=== PATIENT | male | born 1955 | race Caucasian/White ===

== ENCOUNTER 2021-07-06 08:29 | Outpatient (CLI) | payer MEDICARE, SELFPAY ==
--- NOTE | 2021-07-06 08:30 | ECG_ITS ---
Measurements Intervals [place] Rate: 69 P: 45 ME: 167 QRS: -14 QRSD: 97 T: 49 QT: 399 QTc: 428 Interpretive Statements SINUS RHYTHM BASELINE ARTIFACT- I, II, III, AVR, AVL, AVF NORMAL ECG Electronically Signed On 07-06-2021 9:03:15 INFANTRY UNIT LEADER by Trell Petty D.O.
[2021-07-06 09:43] LABS: Anion Gap 12 mmol/L (8-16); Blood Urea Nitrogen 20 mg/dL (9-20); Calcium 9.6 mg/dL (8.4-10.2); Carbon Dioxide 26 mmol/L (22-30); Chloride 100 mmol/L (98-107); Estimated Glomerular Filt Rate > 60; Glucose 129 mg/dL (65-110); Sodium 138 mmol/L (137-145)
== END 2021-07-06 08:30 | disposition home or self-care (01) ==
LOC: ANHSURGERY 08:32
PROVIDERS: Anesthesiology; PCP Internal Medicine; Visit Provider Orthopaedic Surgery
DX: Z01.818 Encounter for other preprocedural examination (principal); Z51.81 Encounter for therapeutic drug level monitoring; Z79.899 Other long term (current) drug therapy; I10 Essential (primary) hypertension
CPT/HCPCS: 36415; 80048; 93005

== ENCOUNTER 2021-07-10 01:08 | Day surgery (SDC) | payer MEDICARE, SELFPAY ==
[2021-07-04 14:56] VITALS: BMI 29.7
--- NOTE | 2021-07-04 14:57 | PC.NURSE ---
Addendum entered by Jin Basurto RN 07/04/21 15:09: No visitors allowed in hospital. Original Note: Report to the Outpatient Waiting Room, entrance under the green pavilion located off [facility], at time _0800__ on date 07-10-2021. OR Time: ___1000_. - You and your visitor will be asked a series of questions to screen for COVID 19 for your protection. - A mask is required within the hospital. - Only one visitor is allowed at this time. Patient visitors will be guided where to wait when not with patient. Preoperative COVID Testing Requirements: No COVID Test needed if: (proof is required; if not received patient will have Rapid Test prior to entry) - Patient has received COVID Vaccine at least 14 days prior to procedure date or - Patient has positive COVID test result within last 90 days of surgery date. COVID Test needed if above criteria is not met If not COVID vaccinated a COVID test must be conducted within 72 hours of surgery and patient is asked to isolate self from time of testing until procedure. You will go to the [facility] for your COVID testing. The [facility] [employer] site is located at the corner of [address] [facility]. You will only be called if COVID results are positive and your surgeon may reschedule your elective surgery date. Patients may have clear liquids (water, carbonated beverages, clear teas, apple juice) until 3 hours prior to surgery with a maximum of 20 ounces. - No food from midnight until time of surgery - Infants may have breast milk until 4 hours before surgery, infant formula 6 hours prior to surgery. - Children will be allowed to drink immediately following surgery. If applicable, please bring a bottle or sippy cup to assist with drinking. Juice, water, soda, and popsicles are readily available. For infants on formula, please bring formula the day of surgery. Pacifiers are allowed. Take the following medications with a SIP of water the morning of surgery: Medications to discontinue per physician Date to take last dose Please no make-up, nail kazakh, hairspray, perfume, deodorant, or body powder the day of surgery. No jewelry (including any body piercings) or valuables the day of surgery, leave them at home. Please take a shower or bath the night before, or the morning of, surgery with an antibacterial soap. Wear comfortable, loose fitting clothing. Children are encouraged to wear pajamas. - Jewelry must be removed prior to entering the operating room. Rings and piercings that are not removed may be cut off. - The hospital will not accept responsibility for valuables. - Please leave all valuables, including medications, at home the day of surgery. If you are going home after surgery, a licensed cement truck driver must drive you home. - NO public transportation without another adult. - We recommend that an adult stay with you for 24 hours following discharge. - We also recommend that you do not drive, make important decision, drink alcoholic beverages, or take any drugs that were not prescribed by your health care provider for at least 24 hours after your discharge time. For Pediatric surgeries, we recommend two adults accompany the child home (only one inside the building at this time). Follow any additional instructions given to you from your surgeon. Telephone instructions given to _Patient and asked if any additional questions and then verbalized understanding. Patient advised to call surgeon office or pre surgery nurse liaison [phone] if any additional questions.
--- NOTE | 2021-07-07 11:25 | PM.IMHP ---
H&P: HPI History of Present Illness Date/Time: 07/07/21 11:25 Chief Complaint: Right toe deformity, bilateral hand pain Narrative: 65-year-old gentleman right 2nd toe deformity and pain. Difficulty with shoe wear. Failed conservative treatment. Bilateral arthritis and small trigger finger deformity without relief. Review of Systems Constitutional: Constitutional: Denies fever(s) Eyes: Eyes: Denies blurry vision ENT: Reports Normal hearing present Cardiovascular: Cardiovascular: Denies chest pain and Denies dyspnea Respiratory: Respiratory: Denies dyspnea and Denies wheezing Gastrointestinal: Gastrointestinal: Denies abdominal pain Genitourinary: Genitourinary: Denies urinary urgency Musculoskeletal: Musculoskeletal: Reports as per HPI and Denies numbness Integumentary/Breasts: Skin/Breast: Denies changing lesions and Denies sores Neurologic: Reports Normal hearing present, Denies behavioral changes, Denies confusion, Denies numbness and Denies convulsions Psychiatric: Psychiatric: Denies behavioral changes, Denies confusion and Denies hallucinations Endocrine: Endocrine: Denies heat intolerance Hematologic/Lymphatic: Hematologic/Lymphatic: Denies easy bleeding Allergic/Immunologic: Allergic/Immunologic: Denies wheezing PMFSH Past Medical History Medical History Acquired trigger finger of left little finger Arthritis of hand, degenerative Hammertoe of second toe of right foot High cholesterol Hypertension Surgical History Surgical History History of carpal tunnel release 2011 History of foot surgery tarsal tunnel bilateral - 2018 History of knee replacement, total Bilateral 2003, 2012 Family History Family History Other Family history of malignant neoplasm Hypertension Social History Social History Smoking packs per day: 1 Smoking cigarettes per day: 20.0 Years smoked: 10 Smoking pack-years: 10.00 Smoking status: Former smoker Tobacco type: cigarettes Smoking end date: 07/04/01 Alcohol intake: current Substance use: never Spiritual care concerns: No Meds Home Medications and Allergies Home Medications Medication Instructions Recorded Confirmed Type hydrocodone-acetaminophen 1 tablet PO Q4H PRN 07/04/21 07/04/21 History losartan-hydrochlorothiazide 1 tablet PO DAILY 07/04/21 07/04/21 History Allergies Allergy/AdvReac Type Severity Reaction Status Date / Time No Known Allergies Allergy Verified 07/04/21 14:45 Exam Const: General: No confusion Orientation/consciousness: No confusion HENMT: Head: normal to inspection, normocephalic and atraumatic Eyes: Conjunctivae: conjunctivae normal Sclera: sclerae normal Neck: Neck: supple and nontender Chest: Chest palpation & inspection: normal inspection of the chest Resp: Effort & Inspection: normal respiratory effort and no audible wheezes Cardio: Rate: regular rate Rhythm: regular rhythm : General: Yes deferred Skin: General skin exam: no rashes or lesions noted Neuro: General: No confusion Extrem: General: capillary refill normal Right upper extremity: normal to inspection and Extremity exam: right hand tenderness of the dorsal hand and of the palm Left upper extremity: normal to inspection and hand tendon exam abnormal ( small finger) 5th digit Location: tenderness over the sheath ( A1 maribel with trigger deformity) and tenderness of the dorsal hand and of the palm Right lower extremity: normal to inspection, hip/thigh Details: normal to inspection, ankle Details: normal ROM; no tenderness and no swelling and foot Details: normal capillary refill, abnormal to inspection Details: joint swelling ( Second toe) and a deformity Location: of the 2nd digit and other ( Ham
[2021-07-10] VITALS (8 sets, daily range): BP systolic 151–179; BP diastolic 84–102; PULSE 62–72; RESP 10–16; TEMP 36.4–36.6; O2SAT 94–99
--- NOTE | ~2021-07-10 | XR_ITS ---
EXAMINATION: XR surgery orthopedic DATE: 07/10/2021 10:02 INDICATION: Right second hammertoe correction TECHNIQUE: 3 fluoroscopic images of the right forefoot were obtained during procedure performed by Dr Cami Abad. Radiologist was not present for the imaging or procedure. The amount of fluoroscopy time u sed during this procedure was 0.1 minutes. COMPARISON: 06/07/2021 FINDINGS: Arthrodesis at the second proximal interphalangeal joint with fixation device spanning the joint spac e placed over an axially directed percutaneous pin which extends from the tuft of the distal phalanx to the base of the proximal phalanx. Alignment of the second toe is now near-anatomic. No fractures i dentified. Minimal to mild osteoarthritis at the first metatarsophalangeal and a few of the interphal angeal joints. IMPRESSION: 1. Near-anatomic alignment post right second hammertoe correction with instrumented arthrodesis at th e second proximal interphalangeal joint. Reviewed, dictated and finalized at location A. ALS EXAMINER IMPRESSION: 1. Near-anatomic alignment post right second hammertoe correction with instrume nted arthrodesis at the second proximal interphalangeal joint.
--- NOTE | 2021-07-10 07:08 | WPDHPUPDATE1 ---
History and Physical Update Update Date/Time: 07/10/21 07:08 History and Physical has been reviewed, including an updated exam of the patient. There are NO changes in the patient's condition. Risks, benefits, and alternatives have been discussed and questions answered. Patient agrees to proceed with procedure.
[2021-07-10] MEDS: ACETAMINOPHEN 500 MG TABLET 1000 MG PO (08:31)
--- NOTE | 2021-07-10 08:36 | WPDANESEPPF ---
Anes - Initial Pre Proc Eval Procedure: Operation Date: 07/10/21 10:00 Proposed Procedures p Right Second Hammertoe Correction, Cortisone Injection Bilateral Hands and Left Small Finger - Rayo Abad MD Date/Time: 07/10/21 08:36 Surgeon: Rayo Abad MD Pre Op Diagnosis: Right Second Hammer Toe, Lt Sm Trigger Finger Patient Data Age: 65 Gender: M Height: 1.96 m Weight: 113.6 kg Allergies Allergy/AdvReac Type Severity Reaction Status Date / Time No Known Allergies Allergy Verified 07/10/21 08:21 Home Medications Medication Instructions Recorded Confirmed Type hydrocodone-acetaminophen 1 tablet PO Q4H PRN 07/04/21 07/10/21 History losartan-hydrochlorothiazide 1 tablet PO DAILY 07/04/21 07/10/21 History ascorbic acid (vitamin C) [Vitamin 500 mg PO DAILY 07/10/21 07/10/21 History C] multivitamin 1 cap PO DAILY 07/10/21 07/10/21 History zinc 50 mg PO DAILY 07/10/21 07/10/21 History Patient hx anesthesia problems: none Family hx anesthesia problems: none Results Review: All pre-operative results and documents have been reviewed as part of the pre-operative evaluation. [facility] Past Medical History Medical History Acquired trigger finger of left little finger Arthritis of hand, degenerative Hammertoe of second toe of right foot High cholesterol Hypertension Surgical History Surgical History History of carpal tunnel release 2011 History of foot surgery tarsal tunnel bilateral - 2018 History of knee replacement, total Bilateral 2003, 2012 Family History Family History Other Family history of malignant neoplasm Hypertension Social History Social History Smoking packs per day: 1 Smoking cigarettes per day: 20.0 Years smoked: 10 Smoking pack-years: 10.00 Smoking status: Former smoker Tobacco type: cigarettes Smoking end date: 07/04/01 Alcohol intake: current Substance use: never Living arrangements: with family Spiritual care concerns: No Anes - Eval Final PreProcedure Day of Procedure 07/10/21 08:36 Patient weight: obese Heart: regular rate and rhythm Lungs: clear to auscultation Airway: Mallampati scale class II Neurological: alert and oriented Last oral intake: >/= 8 hours ASA classification: III Emergent: no Anesthetic plan: proceed Anesthesia type and monitoring: general LMA and standard monitoring Results Review: All pre-operative results and documents have been reviewed as part of the pre-operative evaluation. Informed Consent: The patient's anesthetic plan and its attendant risks and benefits were discussed with the patient/family/POA. Questions were solicited and answers provided to the satisfaction of the patient/family/POA.
[2021-07-10] MEDS: LACTATED RINGERS 1,000 ML 30 ML IV CONT (08:45)
[2021-07-10] MEDS: KETOROLAC 15 MG/ML VIAL (*BKC) IV PUSH (08:46)
[2021-07-10] MEDS: ceFAZolin 2 GM/D5W 50 ML 2 GM/50 ML BAG IVPB (09:02)
[2021-07-10] MEDS: ceFAZolin SODIUM 1 GM VIAL IV PUSH (09:20)
[2021-07-10] MEDS: methylPREDNISolone ACETATE 80 MG/ML VIAL 160 MG IM (09:36)
--- NOTE | 2021-07-10 10:11 | W.PM.PROC2 ---
Procedure Note - Detailed Date of Procedure 07/10/21 Pre-op Diagnosis Right Second Hammer Toe, Lt Sm Trigger Finger, bilateral hand arthritis Post-op Diagnosis same Procedure Performed Right 2nd hammertoe correction with proximal interphalangeal arthrodesis, left small trigger finger cortisone injection, bilateral hand cortisone injection Surgeon Rayo Abad MD [employer] Tube [employer] 1st occupational therapist assistant Anesthesia general Indications 65-year-old gentleman with bilateral lower extremity peripheral neuropathy and a right 2nd hammertoe deformity, left small trigger finger deformity and bilateral hand arthritis. Patient is in a pre ulcerative state with the 2nd toe due to problems with shoe wear. He has failed conservative treatment with hammertoe strapping. He presents for operative treatment. In addition he has trigger deformity of the left small finger and bilateral hand pain and stiffness. He is indicated for cortisone injection. Description of Procedure Patient identified in the preoperative holding. Informed consent given. Operative extremity marked. Patient received intravenous antibiotics. Patient brought to the operating room where underwent general anesthetic by anesthesia team. Positioned supine on operating room table. Time-out performed confirming the patient, site of the surgery and the plan. Right foot and bilateral hands prepped and draped usual sterile surgical fashion using ChloraPrep skin solution. The injections were performed 1st. 40 mg of Depo-Medrol and 1 cc of Marcaine 0.5% was injected into the left small finger flexor tendon sheath at the A1 maribel site. Sterile bandage placed. 25 gauge needle used. Fresh 25 gauge needle then used to inject 40 mg of Depo-Medrol into the dorsum of the left hand, sterile bandage placed. 25 gauge needle used to inject 40 mg of Depo-Medrol into the dorsum of the right hand. Sterile dressing placed. We then turned our attention to the right foot. The 2nd toe deformity was noted to be fixed. Dorsal longitudinal incision made with a 15 blade knife over the proximal interphalangeal joint. Hemostasis controlled electrocautery. Dorsal capsulotomy performed. Collateral ligaments released. The distal end of the proximal phalanx removed with a bone cutter and the proximal end of the middle phalanx removed with a rongeur. Bone edges smoothed. The reamers for the hammertoe implant were then used to ream the proximal and middle phalanx. The implant was then placed into the middle phalanx and the joint was reduced and impacted. Image intensification confirmed placement. 0.0 4 5 in K-wire placed secondarily and left outside the toe. Wound thoroughly irrigated and the capsule repaired with 3-0 Monocryl interrupted suture. Skin repaired 4-0 nylon interrupted suture. Sterile dressing applied. The patient was then woken from anesthesia, extubated and taken to the recovery room in stable condition. All sponge, needle, instrument counts were correct at the end of the case. Implants Arthrex 16 mm hammertoe implant Estimated Blood Loss 5 Tourniquet Time 1 Drains No Packing No Pathology none sent Complications None Condition stable Disposition PACU
== END 2021-07-10 11:55 | disposition home or self-care (01) ==
PROVIDERS: PCP Internal Medicine; Visit Provider Orthopaedic Surgery
PROC: (CPT 28285; principal; 2021-07-10 10:00)
DX: M20.41 Other hammer toe(s) (acquired), right foot (principal); M65.352 Trigger finger, left little finger; M79.18 Myalgia, other site; M19.042 Primary osteoarthritis, left hand; M19.041 Primary osteoarthritis, right hand; M79.642 Pain in left hand; M79.641 Pain in right hand; I10 Essential (primary) hypertension; E78.00 Pure hypercholesterolemia, unspecified; Z87.891 Personal history of nicotine dependence; E66.9 Obesity, unspecified; Z68.30 Body mass index [BMI] 30.0-30.9, adult
CPT/HCPCS: 28285; 20553; 36415; 80048; 93005; A9270; J0690; J1040; J1100; J1885; J2250; J2405; J2704; J7120

== ENCOUNTER 2022-05-01 10:30 | Outpatient (CLI) | payer MEDICARE, SELFPAY ==
--- NOTE | ~2022-05-01 | XR_ITS ---
EXAMINATION: XR lg joint inject/asp w image DATE: 05/01/2022 11:16 INDICATION: Right hip arthritis. TECHNIQUE: A time-out was performed to verify the patient's name, date of , and procedure to b e performed. The procedure including the risks, benefits, and alternatives was discussed with the pat ient. Risks discussed included bleeding and infection. The patient understood the risks and agreed to proceed. The skin overlying the right hip joint was prepped and draped in usual sterile fashion. A nesthetic was administered with 1% lidocaine subcutaneously. A 22 G needle was advanced under fluoro scopic guidance into the joint. Subsequently, injectate consisting of 2 mL 0.5% bupivacaine and 1 mL 80 mg/mL Depo-Medrol was instilled. The needle was removed and the entry site was cleaned and dress ed. There were no immediate complications. Fluoroscopy exposure time was 0.0 minutes. The total numb er of images was 1. FINDINGS: Real-time fluoroscopy demonstrates the needle in the right hip joint. Patient's pain prior to procedure:3/10. Patient's pain following the procedure: 0/10. IMPRESSION: 1. Fluoroscopy guided right hip joint injection of local anesthetic and steroid with decrease in the patient's presenting pain. Reviewed, dictated and finalized at location A.
== END 2022-05-01 10:31 | disposition home or self-care (01) ==
LOC: ANHIMG 10:34
PROVIDERS: PCP Family Medicine; Visit Provider Nurse Practitioner Family
DX: M16.11 Unilateral primary osteoarthritis, right hip (principal)
CPT/HCPCS: 20610; 77002; J1040

== ENCOUNTER 2022-06-13 13:45 | Outpatient (RCR) | payer MEDICARE, SELFPAY ==
--- NOTE | 2022-05-02 12:01 | PTOPEVAL1 ---
Assessment and note entered by Katelin Plascencia, PT Evaluation Information Assessment Status Evaluation Diagnosis Right hip pain Onset 6 weeks Subjective Information Always had soreness. 6 weeks ago started to get more intense and wouldn't go away. Last 2 weeks was constant and at times up to a 10/10. Was taking hydrocodone but felt like it was bothering his stomach. Got a steroid shot 05/01/2022 and feels more comfortable . Reported Pain Level Pain Score 1: Self Report Assessment PT Clinical Summary Pt presents w/ c/o R hip pain that began 6 weeks ago. Last 2 weeks pain was very high, pt was able to receive a steroid shot in the joint yesterday and reports he is much more comfortable now. Evaluation shows decreased Active and Passive ROM of the right hip as compared to left with capsular and joint end-feels as well as decreased strength in the gluteal and abdominal muscles, and poor pelvic alignment with right inominate downslip. Pt is a highly active individual who works our recreationally 4x weekly and also golfs throughout the year. He will greatly benefit from physical therapy to improve right hip range of motion, strength, and pelvic alignment to decrease impingement and return pt to pain-free high level function. Plan of Care Interventions Electrical Stimulation,Gait Training,Manual Therapy,Neuro Re-education,Patient/Caregiver Ed,Therapeutic Activities,Therapeutic Exercise PT Services Indicated Yes Treatment Frequency and 2x weekly x 4 weeks Duration These treatments will address the objective and functional deficits as defined above. The patient will be advanced safely and appropriately in order for the patient to progress towards his/her prior level of function. Additional exercises will be introduced and as well as a comprehensive home exercise program upon discharge, if needed, ?to ensure carryover of functional gains achieved in the clinic. This treatment plan has been reviewed and agreement upon by the patient.
--- NOTE | 2022-05-25 11:51 | BUPTOPEVAL1 ---
Assessment and note entered by Katelin Plascencia, PT Assessment Status Progress Report Diagnosis Right hip pain Onset 6 weeks Subjective Information Reports at times has no pain. Is better able to go golf and walk around but at times still has to stop and rest because of the Achy or stitch feeling in right hip and groin. Would like to be able to lift his right leg onto left for dressing ability. Feels 75% improved overall. Reported Pain Level Pain Score 0-5/10 Additional Pain Score Comments Improved ability to walk on concrete floors up to an hour. Also able to play 9 holes of golf. Assessment PT Clinical Summary Pt burke's mildly increased ROM in hip extension, moderately improved ROM in rotation at 90/90. Burke 's increased strength and appears to have more function with less pain as well as greater ease of movement within available range. However has yet to reach his goals related to pain and function. He voiced today wishing to get back to fitness activities at local Rec. center. Discussed with patient continuation of therapy at 1-2x weekly with focus on home program and return to higher level fitness activities without irritating hip. Thus patient will benefit from cont therapy to continue improvements, educate and empower patient to continue independently upon completion of skilled services. Plan of Care Interventions Electrical Stimulation,Gait Training,Hot Pack/Cold Pack,Manual Therapy,Neuro Re-education,Patient/ Caregiver Educati,Therapeutic Activities, Therapeutic Exercise,Ultrasound PT Services Indicated Yes Treatment Frequency and 1-2x weekly x 4 weeks Duration These treatments will address the objective and functional deficits as defined above. The patient will be advanced safely and appropriately in order for the patient to progress towards his/her prior level of function. Additional exercises will be introduced and as well as a comprehensive home exercise program upon discharge, if needed, ?to ensure carryover of functional gains achieved in the clinic. This treatment plan has been reviewed and agreement upon by the patient.
--- NOTE | 2022-06-15 16:40 | BUPTOPDC ---
Assessment and note entered by Katelin Plascencia, PT Evaluation Information Assessment Status Discharge Diagnosis Right hip pain Onset 6 weeks Subjective Information Pt reports feeling 80-85% improved overall. States most difficulty with with using his elliptical, walking a lot, and with stairs. Reports has been able to return to [facility] without issue, is able to use recumbent bike without issue. Reported Pain Level Pain Score 0: Self Report Assessment PT Clinical Summary Pt reports feeling 80-85% improved overall, with worst pain reducing from 10/10 to 2/10. He has been able to return to his local Recreation center to work out, and only has increased pain with walking a lot . He demo's independence with home exercises, and would like to continue independently. He was educated on return to therapy if necessary but otherwise is doing well and thus is being discharged from therapy services at this time.
== END 2022-06-18 10:55 | disposition home or self-care (01) ==
LOC: ANHHIPT 13:45
PROVIDERS: PCP Family Medicine; Visit Provider Nurse Practitioner Family
DX: M16.11 Unilateral primary osteoarthritis, right hip (principal); M25.551 Pain in right hip
CPT/HCPCS: 97110; 97140; 97161

== ENCOUNTER → 2022-09-17 07:00 | Outpatient (CLI) | payer MEDICARE, SELFPAY ==
--- NOTE | ~2022-09-17 | MR_ITS ---
MRI of the right hip Clinical history: Pain Technique: Coronal T1-weighted, T2-weighted, and proton-density fat-sat images, and axial T1-weighted and proton-density fat-sat images were acquired through the pelvis. Coronal T2-weighted images and c oronal, axial, and sagittal proton-density fat-sat images were acquired through the right hip. Findings: There is no fracture, avascular necrosis, or transient osteoporosis of either hip. There is severe osteoarthritic change at the superior/superolateral aspect of the right hip joint, with joint space narrowing and extensive high-grade chondromalacia. There is subchondral cystic change and christen ow edema in the roof of the right acetabulum. There is additional marrow edema at the anterior aspect of the right femoral head. Minimal right hip joint effusion present. No definite right acetabular la bral tear identified. Visualized osseous alignment about the pelvis and right hip is unremarkable. No muscle atrophy or fuad ma identified. Visualized tendons are intact. No fluid collection or bursitis identified. IMPRESSION: Advanced osteoarthritic at the superior aspect of the right hip joint. Additional marrow edema at the anterior aspect of the right humeral head. This is possibly related to underlying degenerative change, however this somewhat away from articular portion of the femoral hea d. Bone contusion or other reactive marrow edema are also considerations. Reviewed, dictated and finalized at [facility]. IMPRESSION: Advanced osteoarthritic at the superior aspect of the right hip joint. Additional marrow edema at the anterior aspect of the right humeral head. This is possibly related to underlying degenerative change, however this somewhat aw ay from articular portion of the femoral head. Bone contusion or other reactive marrow edema are also considerations.
== END ==
PROVIDERS: PCP Family Medicine; Visit Provider Physician Assistant Medical
DX: M16.11 Unilateral primary osteoarthritis, right hip (principal)
CPT/HCPCS: 73721

== ENCOUNTER 2022-11-23 12:42 | Outpatient (CLI) | payer MEDICARE, SELFPAY ==
--- NOTE | ~2022-11-23 | XR_ITS ---
EXAMINATION: XR lg joint inject/asp w image DATE: 11/23/2022 13:52 INDICATION: Right hip osteoarthritis TECHNIQUE: A time-out was performed to verify the patient's name, date of , and procedure to b e performed. The procedure including the risks, benefits, and alternatives was discussed with the pat ient. Risks discussed included bleeding and infection. The patient understood the risks and agreed to proceed. The skin overlying the right hip joint was prepped and draped in usual sterile fashion. A nesthetic was administered with 1% lidocaine subcutaneously. A 22 G needle was advanced under fluoro scopic guidance into the joint. Injection of 1 mL of Omnipaque 240 confirmed intra-articular positio n of the needle. Subsequently, injectate consisting of 3 mL of a 2:1 mixture of 0.5% Marcaine:80 mg/ mL Depo-Medrol for a total dose of 80 mg Depo-Medrol was instilled. Washout of contrast was seen conf irming intra-articular administration. The needle was removed and the entry site was cleaned and dres sed. There were no immediate complications. Fluoroscopy exposure time was 0.1 minutes. The total num mike of images was 1. FINDINGS: Real-time fluoroscopy demonstrates the needle in the right hip joint. Patient's pain prior to procedure:5/10. Patient's pain following the procedure: 0/10. IMPRESSION: 1. Successful right hip joint injection of local anesthetic and steroid with decrease in the patient' s presenting pain. Reviewed, dictated and finalized at location A. IMPRESSION: 1. Successful right hip joint injection of local anesthetic and steroid with de crease in the patient's presenting pain.
== END 2022-11-23 12:43 | disposition home or self-care (01) ==
PROVIDERS: PCP Family Medicine; Visit Provider Orthopaedic Surgery
DX: M16.11 Unilateral primary osteoarthritis, right hip (principal)
CPT/HCPCS: 20610; 77002; J1040; Q9966

== ENCOUNTER 2023-03-21 07:50 | Outpatient (CLI) | payer MEDICARE, SELFPAY ==
--- NOTE | 2023-03-21 09:05 | ECG_ITS ---
Measurements Intervals [place] Rate: 47 P: 31 WV: 148 QRS: -13 QRSD: 112 T: 7 QT: 436 QTc: 386 Interpretive Statements SINUS BRADYCARDIA INTRAVENTRICULAR CONDUCTION DELAY DELAYED PRECORDIAL R/S TRANSITION BASELINE ARTIFACT- I, II, III, AVR, AVL, AVF ABNORMAL ECG COMPARED TO ECG 07/06/2021 08:48:43 SINUS BRADYCARDIA NOW PRESENT INTRAVENTRICULAR CONDUCTION DELAY NOW PRESENT Electronically Signed On 03-21-2023 9:35:01 CDT by Trell Petty D.O.
[2023-03-21 09:51] LABS: Appearance Urine Clear (Clear); Bilirubin Urine Negative (Negative); Blood Urine Negative (Negative); Color Urine Yellow (Yellow); Glucose Urine UA Negative (Negative); Ketones Urine Negative (Negative); Leukocyte Esterase Ur Negative LEU/UL (Negative); Nitrate Urine Negative (Negative); Protein Urine Negative (Negative); Specific Grav Ur 1.025 (1.001-1.035); Urobilinogen Urine 0.2 mg/dL (<2.0); pH Urine 6.5 (5.0-9.0)
[2023-03-21 10:02] LABS: Urine Cotinine NEGATIVE
[2023-03-21 10:03] LABS: INR 0.9
[2023-03-21 10:04] LABS: Partial Thromboplastin Time 32.2 SECONDS (22.3-36.8)
[2023-03-21 10:06] LABS: Add Urine Microscopic? NO
== END 2023-03-21 07:51 | disposition home or self-care (01) ==
PROVIDERS: PCP Family Medicine; Visit Provider Orthopaedic Surgery
DX: M16.11 Unilateral primary osteoarthritis, right hip (principal); Z01.818 Encounter for other preprocedural examination; I45.9 Conduction disorder, unspecified
CPT/HCPCS: 80307; 81003; 85610; 85730; 86850; 86900; 86901; 87081; 93005

== ENCOUNTER 2023-04-02 00:33 | Day surgery (SDC) | payer MEDICARE, SELFPAY ==
--- NOTE | 2023-03-21 07:54 | PC.NURSE ---
PRE-OP INSTRUCTIONS, PLEASE READ CAREFULLY Report to the Outpatient Waiting Room, entrance under the green pavilion located off [facility], at time _0600_ on date _04/02/23_. Planned Procedure Time: _0730_. PACK A SMALL OVERNIGHT BAG AND LEAVE IN THE CAR ALONG WITH YOUR WALKER Time changes happen often and if your time is changed the preop area will call you the afternoon before. - You and your visitor will be asked to self-screen and do not enter if you have any COVID symptoms. - A mask is optional within the hospital at this time. -VISITING HOURS 8AM-8PM Patients may have clear liquids (water, carbonated beverages, clear teas, apple juice) until 3 hours prior to surgery (0430 AM) with a maximum of 20 ounces. - No food from midnight until time of surgery Take the following medications with a SIP of water the morning of surgery: _ALPRAZOLAM, PAIN PILL & INHALER IF NEEDED_ DO NOT STOP ANY OF YOUR OTHER PRESCRIPTION MEDICATIONS PRIOR TO SURGERY ?EXCEPT THE FOLLOWING Medications to discontinue _IBUPROFEN PER DR. COKER'S INSTRUCTIONS - CALL FOR INSTRUCTIONS__ Medications to discontinue per ANESTHESIA - _MULTIVITAMIN, SUPPLEMENTS 3 DAYS PRIOR TO SURGERY, Date to take last dose 03/29/23_ Please no make-up, nail british, hairspray, perfume, deodorant, or body powder the day of surgery. No jewelry (including any body piercings) or valuables the day of surgery, leave them at home. Please take a shower or bath the night before, or the morning of, surgery with an antibacterial soap. Wear comfortable, loose fitting clothing. - Jewelry must be removed prior to entering the operating room. Rings and piercings that are not removed may be cut off. - The hospital will not accept responsibility for valuables. - Please leave all valuables, including medications, at home the day of surgery. If you are going home after surgery, a licensed screw driver operator must drive you home. - NO public transportation without another adult if you receive anesthesia. - We recommend that an adult stay with you for 24 hours following discharge. - We also recommend that you do not drive, make important decision, drink alcoholic beverages, or take any drugs that were not prescribed by your health care provider for at least 24 hours after your discharge time. Follow any additional instructions given to you from your surgeon. If you or anyone in your household have experienced Covid symptoms in the past week, please notify your surgeon or the nurse liaison at the phone number below for possible testing. Instructions given to _PATIENT_and asked if any additional questions and then verbalized understanding. Patient advised to call surgeon office or pre surgery nurse liaison [phone] if any additional questions.
[2023-03-21 08:20] VITALS: BP 132/74; PULSE 50; RESP 20; TEMP 36.8; O2SAT 98; BMI 30.1
[2023-04-02] VITALS (13 sets, daily range): BP systolic 101–164; BP diastolic 65–88; PULSE 58–112; RESP 14–18; TEMP 36.2–36.8; O2SAT 95–100
--- NOTE | ~2023-04-02 | XR_ITS ---
Right Hip Technique: Portable AP view Clinical History: Status post hip arthroplasty Findings: Patient is status post right hip arthroplasty. Orthopedic hardware alignment appears anatom ic. No hardware complication is evident. Subcutaneous emphysema and swelling is likely postoperative in nature. No acute osseous fracture is seen. Impression: Status post total right hip arthroplasty, without evidence of hardware complication. Reviewed, dictated and finalized at location . Impression: Status post total right hip arthroplasty, without evidence of hardware complica tion.
--- NOTE | 2023-04-02 06:41 | WPDANESEPPF ---
Anes - Initial Pre Proc Eval Procedure: Operation Date: 04/02/23 07:30 Proposed Procedures p Right Total Hip Arthroplasty, Bilateral Hand Cortisone Injection - Nirmal Mayorga MD Date/Time: 04/02/23 06:41 Surgeon: Nirmal Mayorga MD Pre Op Diagnosis: right hip djd, Vidal Hand Arthrititis Patient Data Age: 67 Gender: M Height: 1.96 m Weight: 115.3 kg Last Vital Signs Temp 36.8 C 03/21/23 08:20 Pulse 50 L 03/21/23 08:20 Resp 20 03/21/23 08:20 BP 132/74 03/21/23 08:20 Pulse Ox 98 03/21/23 08:20 O2 Del Method Room Air 03/21/23 08:20 Allergies Allergy/AdvReac Type Severity Reaction Status Date / Time No Known Allergies Allergy Verified 03/21/23 08:12 Home Medications Medication Instructions Recorded Confirmed Type ascorbic acid (vitamin C) 500 mg 500 mg PO DAILY 07/10/21 03/21/23 History tablet (Vitamin C) multivitamin 1 cap PO DAILY 07/10/21 03/21/23 History zinc 50 mg capsule 50 mg PO DAILY 07/10/21 03/21/23 History trazodone 50 mg tablet See Rx Instructions .Route 07/06/22 03/21/23 Rx .COMPLEX #90 tabs albuterol sulfate 90 mcg/actuation 1 - 2 inh inhalation Q4-6H PRN 10/02/22 03/21/23 Rx aerosol inhaler shortness of breath or wheezing #8.5 grams zolpidem 10 mg tablet 10 mg PO QHS PRN insomnia #30 tabs 10/11/22 03/21/23 Rx amlodipine 5 mg-benazepril 20 mg 1 cap PO DAILY #90 caps 11/01/22 03/21/23 Rx capsule hydrocodone 5 mg-acetaminophen 325 1 tablet PO Q4H PRN Pain #30 tabs 12/25/22 03/21/23 Rx mg tablet alprazolam 0.5 mg tablet 0.5 mg PO BID PRN anxiety #180 tabs 03/11/23 03/21/23 Rx ibuprofen 800 mg tablet See Rx Instructions .Route 03/15/23 03/21/23 Rx .COMPLEX #90 tabs chlorhexidine gluconate 4 % 1 applic topical ONCE #237 mL 03/21/23 03/21/23 Rx topical liquid (Hibiclens) lutein 40 mg capsule 40 mg PO DAILY 03/21/23 03/21/23 History omega 8-ewz-eut-fish oil 1,200 mg 1 cap PO DAILY 03/21/23 03/21/23 History (144 mg-216 mg) capsule (Fish Oil) metoprolol succinate 50 mg See Rx Instructions .Route 04/01/23 Rx tablet,extended release 24 hr .COMPLEX #90 tabs Patient hx anesthesia problems: none Family hx anesthesia problems: none Results Review: All pre-operative results and documents have been reviewed as part of the pre-operative evaluation. [facility] Past Medical History Medical History Acquired trigger finger of left little finger Acute sinusitis Anxiety Arthritis of hand, degenerative Bilateral shoulder region arthritis Encounter for postoperative care Hammertoe of second toe of right foot High cholesterol Hypertension Idiopathic peripheral neuropathy Insomnia Mallet toe of left foot Mallet toe of right foot Osteoarthritis of right hip Pain in left foot Pain in right foot (12/20/17) Right hip pain Tarsal tunnel syndrome of left side Tarsal tunnel syndrome of right side Trigger middle finger of left hand Surgical History Surgical History H/O colonoscopy 2020 Dr. Hare repeat 3 years History of carpal tunnel release 2011 History of foot surgery tarsal tunnel bilateral - 2018 History of hammer toe correction History of knee replacement, total Bilateral 2003, 2012 Family History Family History Father Heart disease Mother No problems noted. Other Family history of malignant neoplasm Hypertension Social History Social History Smoking packs per day: 1 Smoking cigarettes per day: 20.0 Years smoked: 10 Smoking pack-years: 10.00 Smoking status: Former smoker Tobacco type: cigarettes Second hand tobacco smoke exposure: No Smoking end date: 07/01/07 Additional smoking assessment comments: PT DENIES ALL FORMS OF TOBACCO USE Alcohol intake: current Alcohol use details: 12/WEEK DU
[2023-04-02] MEDS: LACTATED RINGERS 1,000 ML 30 ML IV CONT ×2 (06:45→10:27)
[2023-04-02] MEDS: ACETAMINOPHEN 500 MG TABLET 1000 MG PO (06:45)
--- NOTE | 2023-04-02 07:16 | WPDHPUPDATE1 ---
History and Physical Update Update Date/Time: 04/02/23 07:16 History and Physical has been reviewed, including an updated exam of the patient. There are NO changes in the patient's condition. Risks, benefits, and alternatives have been discussed and questions answered. Patient agrees to proceed with procedure.
[2023-04-02] MEDS: ceFAZolin 2 GM/D5W 50 ML 2 GM/50 ML BAG IVPB ×3 (07:35→23:39)
[2023-04-02] MEDS: methylPREDNISolone ACETATE 40 MG/ML VIAL IM ×2 (09:17→09:20)
[2023-04-02] MEDS: BUPivacaine HCL 0.5% 10 ML AMP 8 ML INFILTRATE (09:22)
[2023-04-02] MEDS: TRANEXAMIC ACID 1,000 MG/10 ML AMPUL 1000 MG IV PUSH (09:43)
--- NOTE | 2023-04-02 10:26 | W.PM.PROC2 ---
Procedure Note - Detailed Date of Procedure 04/02/23 Pre-op Diagnosis right hip djd, Vidal Hand Arthrititis Post-op Diagnosis Same Procedure Performed R BRAD, INJECTION BILATERAL HANDS Surgeon Nirmal Mayorga MD Anesthesia General Description of Procedure THE PATIENT WAS TAKEN TO THE OPERATING ROOM IN STABLE CONDITION AND WAS PLACED IN THE LATERAL DECUBITUS AND THE RIGHT LOWER EXTREMITY WAS PREPPED AND DRAPED IN THE STERILE FASHION. INCISION WAS MADE IN THE POSTERIOR LATERAL SIDE OF THE HIP, DOWN TO THE FASCIA LAYER. THE FASCIA WAS INCISED. THE HIP WAS EXPOSED. THE SHORT EXTERNAL ROTATORS WERE EXPOSED. THE SCIATIC NERVE WAS IDENTIFIED. INCISION WAS MADE THROUGH THE SHORT EXTERNAL ROTATORS AND THE CAPSULE OF THE HIP JOINT. THE HIP WAS DISLOCATED. AN OSTEOTOMY WAS MADE TO THE FEMORAL NECK ABOUT 1 CM PROXIMAL TO THE LESSER TROCHANTER. THE ACETABULUM WAS EXPOSED. THERE WAS SEVERE DJD SEEN. BEGINNING WITH A 44 REAMER THE ACETABULUM WAS REAMED TO 57 MM. A 57 MM TRIAL WAS PLACED IN 35 DEG OF ABDUCTION AND ANTEVERSION WAS IN ALIGNMENT WITH THE TRANS ACETABULAR LIGAMENT. THE FIT WAS EXCELLENT. THE TRIAL WAS REMOVED. A 58 MM BIOMET G7 COMPONENT WAS THEN TAPPED IN TO PLACE IN 35 DEG OF ABDUCTION AND ANTEVERSION IN ALIGNMENT WITH THE TRANSVERSE ACETABULAR LIGAMENT. THE FIT WAS EXCELLENT. THE ACETABULAR LINER WAS PLACED AND CHECKED FOR STABILITY. NEXT THE FEMUR WAS PREPARED WITH INITIAL CANAL FINDER THEN SEQUENTIAL BROACHING WITH A TAPERLOC HIP SYSTEM, UNTIL A 12 BROACH FIT WELL IN 15 OF ANTEVERSION. A +3 HIGH OFFSET NECK WITH 36 MM HEAD TRIAL WAS PLACED. THE SHUCK TEST WAS EXCELLENT AND THE STABILITY IN FLEXION AND ROTATION WAS EXCELLENT. LEG LENGTHS WERE GROSSLY EQUAL. TRIALS WERE REMOVED. A BIOMET TAPERLOC 12 STEM WAS PLACED WITH A HIGH OFFSET NECK. THE FIT WAS EXCELLENT IN 15 DEG OF ANTEVERSION. A +3 CERAMIC 36 MM FEMORAL HEAD WAS PLACED. THE HIP WAS TRIALED AND THE STABILITY WAS EXCELLENT WERE THE LEG LENGTHS AND THE SHUCK TEST. THE WOUND WAS IRRIGATED WITH STERILE BETADINE AND WATER FOR 3 MIN. THEN WASHED AGAIN. THE SCIATIC NERVE WAS IDENTIFIED AGAIN. THE CAPSULE AND THE EXTERNAL ROTATORS WERE APPROXIMATED WITH NUMBER 2 VICRYL. THE FASCIA WITH No 2 QUIL AND THE SUB CUTANEOUS LAYER WITH 2-0 ABSORBABLE SUTURE AND A RUNNING 3-0 SUBCUTICULAR STITCH FOR THE SKIN. DERMABOND WAS PLACED AND STERILE DRESSING WAS APPLIED. NEXT BOTH HANDS WERE IDENTIFIED. DEPO MEDROL AND SENSORCAINE WERE INJECTED INTO THE DORSUM OF BOTH HANDS ADJACENT TO THE MP CAPSULE OF ALL DIGITS. PATIENT WAS PLACED BACK ON TO THE SUPINE POSITION AND WAS EXTUBATED Estimated Blood Loss -1,400 Complications No immediate complications Condition Stable Disposition PACU
--- NOTE | 2023-04-02 10:45 | SUR.PHASEI ---
1045- Verified with Dr. Mayorga drawing H&H in PACU. Per Dr. Mayorga place orders for 04/03/2023 H&H in AM at 0500. Orders obtained and placed for H&H.
[2023-04-02] MEDS: fentaNYL CITRATE INJ (*CRX) 100 MCG/2 ML VIAL 25 MCG IV PUSH ×8 (10:51→11:20)
--- NOTE | 2023-04-02 11:45 | PC.NURSE ---
This patient, Conor Washington, was admitted to 3 Med Surg Room 306-02. Patient/family oriented to hospital policies and general routines including ID bracelet, bed and alarms, visiting hours, pain management, procedures, bathroom and other care routines, personal items, smoking policy, room service/diet, and visiting hours. Information on how to activate the Rapid Response Team has been discussed. Patient/Family are encouraged to report perceived risks to care and to ask questions if they do not understand what they are told or what they should do.
[2023-04-02] MEDS: HYDROcodone/acetaminophen (*CRX) 7.5-325 MG TABLET 1 TAB PO ×2 (13:06→18:11)
[2023-04-02] MEDS: PROPARACAINE HCL 0.5% 15 ML OPHTH SOLN 1 DROP EACH EYE (13:27)
[2023-04-02] MEDS: DICLOFENAC SODIUM 0.1% OPHTH SOLN 2.5 ML BOTTLE 1 DROP EACH EYE ×2 (14:04→21:38)
[2023-04-02] MEDS: ONDANSETRON INJ 4 MG/2 ML VIAL IV PUSH ×2 (14:52→23:44)
[2023-04-02] MEDS: SODIUM CHLORIDE 0.9% IV 1,000 ML 125 ML IV CONT (16:40)
[2023-04-02] MEDS: KETOROLAC 15 MG/ML VIAL (*BKC) IV PUSH ×2 (17:59→23:35)
[2023-04-02] MEDS: ASPIRIN 325 MG ENTERIC TABLET PO (21:38)
[2023-04-02] MEDS: FAMOTIDINE 20 MG TABLET PO (21:38)
[2023-04-03 00:31] VITALS: BP 173/82; PULSE 94; RESP 18; TEMP 36.8; O2SAT 97
[2023-04-03 04:30] VITALS: BP 148/77; PULSE 102; RESP 16; TEMP 36.2; O2SAT 97
[2023-04-03 06:08] LABS: Basophils Percent Auto 0.1 % (0.2-1.2); Eosinophils Percent Auto 0.1 % (0-4.4); Hematocrit 34.4 % (42.0-52.0); Hemoglobin 11.4 g/dL (14.0-18.0); Immature Granulocyte Absolute 0.07 K/mm3 (0.00-0.031); Immature Granulocyte Percent A 0.5 % (0-0.5); Lymphocytes Absolute Auto 0.82 K/mm3 (0.9-3.2); Lymphocytes Percent Auto 6.2 % (18.3-44.2); Mean Corpuscular HGB Conc 33.1 g/dl (32-36); Mean Corpuscular Hemoglobin 33.6 pg (26-34); Mean Corpuscular Volume 101.5 fl (80-100); Mean Platelet Volume 10.6 fl (7.4-10.4); Monocytes Absolute Auto 1.2 K/mm3 (0.1-0.6); Monocytes Percent Auto 8.7 % (2.6-8.5); Neutrophils Absolute Auto 11.2 K/mm3 (1.3-6.7); Neutrophils Percent Auto 84.4 % (45.5-73.1); Platelet Count Result 175 k/mm3 (150-375); Red Blood Count 3.39 M/mm3 (4.6-6.20); Red Cell Distribution Width 12.2 % (11.5-14.5); White Blood Count 13.3 K/mm3 (4.5-10.0)
[2023-04-03] MEDS: DICLOFENAC SODIUM 0.1% OPHTH SOLN 2.5 ML BOTTLE 1 DROP EACH EYE (06:21)
[2023-04-03] MEDS: ceFAZolin 2 GM/D5W 50 ML 2 GM/50 ML BAG IVPB (06:21)
[2023-04-03] MEDS: KETOROLAC 15 MG/ML VIAL (*BKC) IV PUSH (06:22)
[2023-04-03 06:37] LABS: Anion Gap 9 mmol/L (8-16); Blood Urea Nitrogen 21 mg/dL (9-20); Calcium 8.5 mg/dL (8.4-10.2); Carbon Dioxide 27 mmol/L (22-30); Chloride 98 mmol/L (98-107); Estimated CRCL calculation 128 ml/min; Estimated Glomerular Filt Rate > 60; Glucose 144 mg/dL (65-110); Sodium 134 mmol/L (137-145)
[2023-04-03 08:45] VITALS: BP 178/77; PULSE 116; RESP 18; O2SAT 100
[2023-04-03 09:11] VITALS: O2SAT 97
[2023-04-03 09:16] VITALS: BP 121/90; PULSE 119; RESP 18; TEMP 36; O2SAT 99
[2023-04-03] MEDS: SENNA/DOCUSATE SODIUM TABLET 2 TAB PO (09:29)
[2023-04-03] MEDS: amLODIPine BESYLATE 5 MG TABLET BY MOUTH (09:29)
[2023-04-03] MEDS: FAMOTIDINE 20 MG TABLET PO (09:29)
[2023-04-03] MEDS: lisinopriL 20 MG TABLET PO (09:29)
[2023-04-03] MEDS: ASCORBIC ACID 500 MG TABLET PO (09:30)
[2023-04-03] MEDS: polyethylene glycoL 3350 17 GM POWD.PACK PO (09:30)
--- NOTE | 2023-04-03 09:36 | WPDANESPN ---
Anes - Prog Note Post-Op Date/Time: 04/03/23 09:36 Cardiovascular status: normal Respiratory status: normal Airway patency: baseline Mental status: baseline Post-Op hydration status: normal Vital Signs: Last Vital Signs Temp 97.1 F L 04/03/23 04:30 Pulse 116 H 04/03/23 08:45 Resp 18 04/03/23 08:45 BP 178/77 H 04/03/23 08:45 Pulse Ox 97 04/03/23 09:11 O2 Del Method Room Air 04/03/23 09:11 O2 Flow Rate 8 04/02/23 10:55 Pain Score (VAS): 2 I/O: Intake & Output 04/02/23 04/03/23 04/03/23 23:59 07:59 15:59 Intake Total 720 50 Output Total 625 Balance 720 -575 Laboratory Tests 04/03/23 05:26 04/03/23 05:23 04/03/23 04/03/23 05:23 05:26 WBC 13.3 H RBC 3.39 L Hgb 11.4 L Hct 34.4 L MCV 101.5 H MCH 33.6 MCHC 33.1 RDW 12.2 Plt Count 175 MPV 10.6 H Immature Gran % (Auto) 0.5 Neut % (Auto) 84.4 H Lymph % (Auto) 6.2 L Tucker % (Auto) 8.7 H Eos % (Auto) 0.1 Baso % (Auto) 0.1 L Lymph # (Auto) 0.82 L Tucker # (Auto) 1.2 H Eos # (Auto) 0.0 Baso # (Auto) 0.0 Abs Immat Gran (auto) 0.07 H Absolute Neuts (auto) 11.2 H Absolute Nucleated RBC 0.0 Nucleated RBC % 0.0 Sodium 134 L Potassium 4.0 Chloride 98 Carbon Dioxide 27 Anion Gap 9 BUN 21 H Creatinine 0.60 L Estim Creat Clear Calc 128 Estimated GFR > 60 Glucose 144 H Calcium 8.5 Post-procedural complaints: nausea and vomiting Patient Feedback: Patient satisfied with anesthetic care.
--- NOTE | 2023-04-03 10:47 | PM.PNORT ---
Progress Note: A&P Assessment and Plan (1) Osteoarthritis of right hip: Code(s): M16.11 - Unilateral primary osteoarthritis, right hip Status: Acute Assessment and Plan: POD 1 DOING WELL, HE IS HAVING SOME NAUSEA AND VOMITING X 2 YESTERDAY. NO VOMITING THIS AM. WE WILL SEE HOW HE IS DOING THIS AFTERNOON AND PLAN FOR DC IF HE IS FEELING BETTER. Subjective Subjective Date/Time Seen: 04/03/23 10:47 Interval history: POD 1 DOING WELL. NO CALF PAIN Exam Extrem: Other: VSS AFEBRILE DRESSING DRY, NV INTACT, NEG HOMANS SIGN, CALF SOFT NON TENDER Objective Data Vital Signs Vital Signs: Vital Signs - 24 hr 04/02/23 10:55 04/02/23 11:10 04/02/23 11:25 Temperature 36.2 C L 36.2 C L Pulse Rate 58 L 62 61 Respiratory Rate 16 16 14 Blood Pressure 118/88 139/84 130/82 Pulse Oximetry 100 100 100 Oxygen Delivery Simple Face Mask Room Air Room Air Oxygen Flow Rate 8 04/02/23 11:29 04/02/23 11:45 04/02/23 11:45 Temperature 36.4 C Pulse Rate 62 65 Respiratory Rate 16 14 Blood Pressure 152/79 H 164/77 H Pulse Oximetry 96 100 Oxygen Delivery Room Air Room Air Oxygen Flow Rate 04/02/23 12:00 04/02/23 12:30 04/02/23 13:30 Temperature 36.4 C 36.5 C 36.5 C Pulse Rate 62 69 73 Respiratory Rate 14 14 14 Blood Pressure 144/73 H 136/76 142/75 H Pulse Oximetry 99 98 100 Oxygen Delivery Oxygen Flow Rate 04/02/23 15:42 04/02/23 17:30 04/02/23 21:16 Temperature 36.2 C L 36.8 C Pulse Rate 112 H 85 Respiratory Rate 16 16 Blood Pressure 101/65 152/76 H Pulse Oximetry 95 96 Oxygen Delivery Room Air Oxygen Flow Rate 04/03/23 00:31 04/03/23 04:30 04/03/23 08:45 Temperature 36.8 C 36.2 C L Pulse Rate 94 102 H 116 H Respiratory Rate 18 16 18 Blood Pressure 173/82 H 148/77 H 178/77 H Pulse Oximetry 97 97 100 Oxygen Delivery Oxygen Flow Rate 04/03/23 09:11 04/03/23 09:29 04/03/23 09:16 Temperature 36.0 C L Pulse Rate 119 H Respiratory Rate 18 Blood Pressure 121/90 Pulse Oximetry 97 99 Oxygen Delivery Room Air Room Air Oxygen Flow Rate Intake/Output Intake/Output: Intake & Output 03/31/23 04/01/23 04/02/23 04/03/23 23:59 23:59 23:59 23:59 Intake Total 1092 50 Output Total 625 Balance 1092 -575 Meds/Results Medications: Active Medications Generic Name Dose Route Start Last Admin Trade Name Freq PRN Reason Stop Dose Admin Acetaminophen 650 mg 04/02/23 11:31 Acetaminophen 325 Mg Tablet PO Q6H PRN Mild Pain (1-3) or Fever Hydrocodone Bitart/Acetaminophen 1 tab 04/02/23 11:31 04/02/23 18:11 Hydrocodone/Acetaminophen (*Crx) 7.5-325 Mg Tablet PO 1 tab Q3H PRN Administration Pain Rated 4-6 Hydrocodone Bitart/Acetaminophen 2 tab 04/02/23 11:31 Hydrocodone/Acetaminophen (*Crx) 7.5-325 Mg Tablet PO Q6H PRN Pain Rated 7-10 Alprazolam 0.5 mg 04/02/23 11:31 Alprazolam (*Crx) 0.5 Mg Tablet PO BID PRN anxiety Amlodipine Besylate 5 mg 04/03/23 09:00 04/03/23 09:29 Amlodipine Besylate 5 Mg Tablet BY MOUTH 5 mg DAILY ROGE Administration Artificial Tears 1 drop 04/02/23 13:09 Artificial Tears Ophth Soln 15 Ml Bottle EACH EYE Q2H PRN Dry Eye(s) Ascorbic Acid 500 mg 04/03/23 09:00 04/03/23 09:30 Ascorbic Acid 500 Mg Tablet PO 500 mg DAILY ROGE Administration Aspirin 325 mg 04/02/23 21:00 04/03/23 09:35 Aspirin 325 Mg Enteric Tablet PO Not Given Q12HR ROGE Diazepam 5 mg 04/02/23 11:31 Diazepam (*Crx) 5 Mg Tablet PO Q6H PRN Anxiety/Muscle Spasm Diclofenac Sodium 1 drop 04/02/23 14:00 04/03/23 06:21 Diclofenac Sodium 0.1% Ophth Soln 2.5 Ml Bottle EACH EYE 04/06/23 13:59 1 drop Q8HR ROGE Administration Famotidine 20 mg 04/02/23 21:00 04/03/23 09:29 Famotidine 20 Mg Tablet PO 20 mg Q12HR ROGE Administration Hydroxyzine HCl 50 mg 04/02/23 11:31 Hydroxyzine Hcl 25 Mg Tablet
--- NOTE | 2023-04-03 13:12 | PC.NURSE ---
Addendum entered by Criss Corral RN 04/03/23 17:19: Pt was discharged home. Pt was wheeled out to car by organic section technical lead per pt and family request to have a male help pt in the vehicle. Pt IV was removed, and surgical dressing was changed. Pt tolerated well. Extra dressing was sent with pt. Discharge instructions were explained to pt and spouse. Both verbalized understanding. Pt was monitored for any changes in status while here. Original Note: Pt is A&O4 male who has participated and contributed in plan of care. Pt is post-op day 1. Pt has been having nausea. Pt denies any pain and has refused offers of pain medication and nausea medication. Pt has been up with therapy today. Pt hopeful to discharge later today. Pt blood pressure elevated with therapy earlier. Pt bp returned to normal limits at rest. Will continue to monitor pt.
[2023-04-03 13:16] VITALS: BP 139/71; PULSE 84; RESP 14; TEMP 36.6; O2SAT 92
[2023-04-03] MEDS: CALCIUM CARBONATE (TUMS) 500 MG (200 MG ELEMENTAL) PO (13:45)
--- NOTE | 2023-04-03 14:37 | PM.DS ---
DS: Admitting Diagnosis Discharge Date 02-01-23 Admitting Diagnosis right hip djd DS: Discharge Diagnosis Discharge Diagnosis (1) Osteoarthritis of right hip: Code(s): M16.11 - Unilateral primary osteoarthritis, right hip Status: Acute DS: Summary Hospital Course Reason for hospitalization: RIGHT BRAD Hospital Course: PATIENT WAS ADMITTED S/P TOTAL HIP ARTHROPLASTY FOR POSTOPERATIVE MEDICAL MANAGEMENT, PAIN CONTROL AND MOBILIZATION WITH PHYSICAL AND OCCUPATIONAL THERAPY. THE PATIENT PROGRESSED WELL WITH PT/OT. LABS AND VITALS REMAINED STABLE AND PAIN WELL CONTROLLED. THE PATIENT HAS BEEN CLEARED TO BE DISCHARGED HOME. FOLLOW UP APPOINTMENT SCHEDULED. DISCHARGE INSTRUCTIONS DISCUSSED AT LENGTH WITH THE PATIENT. MEDICATIONS REVIEWED. Status at Discharge Cognitive/behavioral status at discharge: STABLE Time Spent with Patient Time attestation: Total time spent providing and/or coordinating discharge services: DS: Data Data Completed and Pending Labs on day of discharge: Labs from last 24 hours 04/03/23 04/03/23 05:26 05:23 WBC 13.3 H RBC 3.39 L Hgb 11.4 L Hct 34.4 L MCV 101.5 H MCH 33.6 MCHC 33.1 RDW 12.2 Plt Count 175 MPV 10.6 H Immature Gran % (Auto) 0.5 Neut % (Auto) 84.4 H Lymph % (Auto) 6.2 L Letcher % (Auto) 8.7 H Eos % (Auto) 0.1 Baso % (Auto) 0.1 L Lymph # (Auto) 0.82 L Letcher # (Auto) 1.2 H Eos # (Auto) 0.0 Baso # (Auto) 0.0 Abs Immat Gran (auto) 0.07 H Absolute Neuts (auto) 11.2 H Absolute Nucleated RBC 0.0 Nucleated RBC % 0.0 Sodium 134 L Potassium 4.0 Chloride 98 Carbon Dioxide 27 Anion Gap 9 BUN 21 H Creatinine 0.60 L Estim Creat Clear Calc 128 Estimated GFR > 60 Glucose 144 H Calcium 8.5 Discharge Plan Discharge Patient Disposition: Home Health Service Discharge Instructions: Per Care Coordination: [facility] will contact you prior to their first visit. [facility] will follow for RN and PT/OT eval and treat. [facility] can be reached at [phone]. Postoperative Hip Fracture Instructions [Dr. Rayo Abad] [Dr. Nirmal Mayorga] [phone] Dressing to be changed daily with an island dressing beginning on post op day #2. May stop dressing changes at post op day #14. No sutures/yanira will need to be removed. Can allow Dermabond to fall off naturally. Weight bearing: Weight bearing as tolerated. You may shower with your dressing but do not submerge in a bath tub. Do not drive or operate machinery until you are released by your surgeon. Do not walk without a walker for any reason until you are released by your surgeon. DVT prophylaxis take Aspirin 325mg PO for x28 days post op. Continue to apply ice to the hip intermittently for additional pain relief. Protect your skin with a towel or pillow case. Continue to follow strict hip fracture precautions. Please contact our office with any questions/concerns regarding your hip at [phone]. Follow up appointment instructions indicated below. Patient Instructions: Antibiotic Form Stand Alone Forms: General Discharge Information Follow-up/Referrals: Nirmal Mayorga MD [Physician] - 04/22/23 9:15 am Discharge Medications: Continued hydrocodone-acetaminophen 5-325 mg tablet 1 tablet PO Q4H PRN (Reason: Pain) Qty: 30 0RF ibuprofen 800 mg tablet See Rx Instructions .ROUTE .COMPLEX Qty: 90 1RF Dose Instruction: TAKE 1 TABLET BY MOUTH 3 TIMES A DAY NEEDED FOR PAIN Rx Instructions: TAKE 1 TABLET BY MOUTH 3 TIMES A DAY NEEDED FOR PAIN ascorbic acid (vitamin C) [Vitamin C] 500 mg Tablet 500 mg PO DAILY multivitamin Capsule 1 cap PO DAILY zinc 50 mg Capsule 50 mg PO DAILY omega 6-cob-vev-fish oil [Fish Oil] 1,200 (144-216) mg Capsule 1 cap PO DAILY lutein 40 mg Capsule 40 mg PO DAILY Rx Instructions: administer with meals trazodone 50
== END 2023-04-03 16:15 | disposition home health service (06) ==
LOC: ANHSURGERY 05:57 → ANH3MEDSUR 11:34
PROVIDERS: PCP Family Medicine; Visit Provider Orthopaedic Surgery
PROC: (CPT 27130; principal; 2023-04-02 07:30)
DX: M16.11 Unilateral primary osteoarthritis, right hip (principal); M19.042 Primary osteoarthritis, left hand; M19.041 Primary osteoarthritis, right hand; I10 Essential (primary) hypertension; E78.00 Pure hypercholesterolemia, unspecified; G62.9 Polyneuropathy, unspecified; Z87.891 Personal history of nicotine dependence; E66.9 Obesity, unspecified; Z68.29 Body mass index [BMI] 29.0-29.9, adult; Z79.51 Long term (current) use of inhaled steroids; Z79.891 Long term (current) use of opiate analgesic
CPT/HCPCS: 27130; 20600; 36415; 73501; 80048; 80307; 81003; 85025; 85610; 85730; 86850; 86900; 86901; 87081; 93005; 97110; 97116; 97161; 97165; 97530; 97535; A9270; C1713; C1776; J0171; J0690; J1030; J1100; J1170; J1885; J2250; J2270; J2371; J2405; J2704; J2795; J3010; J7030; J7120

== ENCOUNTER 2024-02-17 08:00 | Outpatient (RCR) | payer MEDICARE, SELFPAY ==
--- NOTE | 2024-01-16 17:02 | OPREHPOC ---
Outpatient Therapy Plan of Care This is a Multidisciplinary Plan of Care that may contain components documented by all disciplines (PT, OT, and ST.) PT Problem 1 PT Problem #1 Knowledge Deficit PT Goal 1 Goal Pt will be independent in HEP Pt will verbalize understanding of diagnosis and prognosis Target Visit 6 PT Problem 2 PT Problem #2 Impaired Range of Motion PT Goal 1 Goal Pt will demo ROM within 75% of normal values in all tested planes Target Visit 6 PT Problem 3 PT Problem #3 Impaired Endurance PT Goal 1 Goal Pt will demo ability to maintain appropriate scapular position throughout entire session without cueing. Target Visit 6 PT Problem 4 PT Problem #4 Impaired Strength PT Goal 1 Goal Pt will demo strength of 4/5 in all tested planes Target Visit 6
--- NOTE | 2024-01-16 17:02 | PTOPEVAL1 ---
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 Scheduled for 04/01/24 left total shoulder replacement and six months later the right shoulder. Can't currently do work outs wiht UEs, doing the elliptical with UEs increases discomfort. Currently taking hydrocodone as needed but hasn't had to take it since the last steroid shot. Modifies his activities to prevent increased discomfort Reported Pain Level Pain Score 0: Self Report Additional Pain Score [facility] Assessment PT Clinical Summary Pt presents for program to assist in preparing him for a total shoulder replacement in March of this year. He demo's poor scapualr placement, decreased active ROM, decreased strength and significant pain and severe crepitus with resisted abduction today. His post-surgical packet was reviewed and his initial home program was provided to focus on increasing ROM and strength. Pt will benefit from cont therapy once weekly to continue progressing pt strength and ROM to prepare for maximal outcome of surgical intervention later this year. Plan of Care Interventions Electrical Stimulation,Hot Pack/Cold Pack,Manual Therapy,Neuro Re-education,Patient/Caregiver Educati,Therapeutic Activities,Therapeutic Exercise,Self-Care/Home Management,Ultrasound PT Services Indicated Yes Treatment Frequency and 1x weekly x 6 weeks Duration These treatments will address the objective and functional deficits as defined above. The patient will be advanced safely and appropriately in order for the patient to progress towards his/her prior level of function. Additional exercises will be introduced and as well as a comprehensive home exercise program upon discharge, if needed, ?to ensure carryover of functional gains achieved in the clinic. This treatment plan has been reviewed and agreement upon by the patient.
--- NOTE | 2024-02-17 17:10 | PTOPDC ---
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 Is not allowed steroids three months prior surgery Is not currently requiring modification to activities, cont to golf. Has been able to control pain wiht OTC. Noted significant grinding with wiping off [employer] yesterday Reported Pain Level Pain Score 2: Self Report Assessment PT Clinical Summary Pt has completed his 6 visits of therapy to prepare for surgery in the coming months. He demo' s good understanding of maintaining and continued gains of ROM and strength with his HEP. He demo's independence in his HEP and also reports lower incidents of pain since initiation of therapy. Thus patient is being discharged from services due to completion. Plan of Care PT Services Indicated No
== END 2024-02-18 10:30 | disposition home or self-care (01) ==
LOC: ANHHIPT 08:00
PROVIDERS: PCP Physician Assistant Medical
DX: M19.012 Primary osteoarthritis, left shoulder (principal); M25.512 Pain in left shoulder; G89.29 Other chronic pain
CPT/HCPCS: 97014; 97110; 97140; 97162; 97530; 97750; G0283

== ENCOUNTER 2024-06-19 08:30 | Outpatient (RCR) | payer MEDICARE, SELFPAY ==
--- NOTE | 2024-04-24 17:16 | PTOPEVAL1 ---
Assessment and note entered by Marley Billingsley, PT Evaluation Information Assessment Status Evaluation ICD-10 Condition Codes (PT) M25.512,Weakness R53.1 Subjective Information Pt reports underwent surgery last 04/01/2024. Wore a sling first 2 weeks, compliant with post-op HEPs provided by Ortho. States he feels greatest pain with moving L shoulder out to the side. Stopped wearing the sling and cont. 1-2 miles daily walks if he feels ache to shoulder he puts it inside pocket and pain is relieved. Taking Hydrocodone prn, Tylenol daily at night. Pt's goal is to regain full mobility and strength to be able to play golf without discomfort. Reported Pain Level Pain Score 2: Self Report Assessment PT Clinical Summary Pt is a 68 yo male who presents to therapy s/p L anatomic total shoulder arthroplasty. He scored 47 % on QUICK DASH indicating moderate disability, Demos significant reduction in ROM, strength and c /o pain with mild swelling at this time which impact his ability to perform ADLs and IADLs requiring increased assistance from his . He will benefit from skilled PT to manage pain, address deficits and improve functional strength and mobility to return to PLOF without pain and discomfort. Plan of Care Interventions Electrical Stimulation,Hot Pack/Cold Pack, Intermittent Compression,Manual Therapy,Neuro Re- education,Patient/Caregiver Education,Therapeutic Activities,Therapeutic Exercise Other Interventions IASTM, Taping PT Services Indicated Yes Treatment Frequency and 2x/wk x 20 visits Duration These treatments will address the objective and functional deficits as defined above. The patient will be advanced safely and appropriately in order for the patient to progress towards his/her prior level of function. Additional exercises will be introduced and as well as a comprehensive home exercise program upon discharge, if needed, ?to ensure carryover of functional gains achieved in the clinic. This treatment plan has been reviewed and agreement upon by the patient.
--- NOTE | 2024-06-19 09:59 | PTOPDC ---
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 However, he notice that at night, he feels like a gentle throbbing on the incision site , haven't taken medication for pain in the last 3 days. Reported Pain Level Pain Score 0: Self Report Assessment PT Clinical Summary Pt received a total of 9 treatment sessions post Total Shoulder Replacement surgery, presented today for reassessment. Demos good progress and gains in mobility to WNL, strength of 4/5 to tested planes, showed 12% in Quick DASH score indicating minimal disability at this time. He has met all established goals and reports compliant with HEPs, planning to start going back to the [facility] after the Holidays and is confident about performing the exercises following the return to function protocol provided by Surgeon. Skilled PT discontinued at this time. Plan of Care PT Services Indicated No
== END 2024-06-22 13:07 | disposition home or self-care (01) ==
LOC: ANHHIPT 08:30
PROVIDERS: PCP Physician Assistant Medical
DX: M19.012 Primary osteoarthritis, left shoulder (principal); M25.512 Pain in left shoulder; R53.1 Weakness
CPT/HCPCS: 97014; 97035; 97110; 97140; 97161; 97750; G0283

== ENCOUNTER 2024-09-05 08:27 | Emergency (ER) | payer MEDICARE, SELFPAY ==
--- OUTSIDE RECORDS SUMMARY | 2024-09-05 08:29 | XMS_ITS | Encounter Summary ---
Author Organization [facility] Address [address] [place] [address] Care Team Providers Care Bomb Squad Officer Name Role Phone Unavailable Primary Care Provider Unavailabl e Encounter Details Date Type Department Care Team (Late st Contact Info) Description 03/03/2024 Lab Requisition [facility] - DermPath Lab [address] [place] [id number] Deedee Wetzel PA [address] [place] [address] Dermatitis, unspecified Social History Tobacco Use Types Packs/Day Years Used Date Smoking Tobacco: Never Assessed Sex and Gender Information Value Date Recorded Sex Assigned at Not on file Gender Identity Not on file Sexual Orientation Not on file documented as of this encounter Plan of Treatment Not on file documented as of this encounter Procedures Procedure Name Priority Date/Time Associated Diagnosis Comments DERMATOPATHOLOGY Routine 03/03/2024 12:0 0 AM CDT Dermatitis, unspecified documented in this encounter Results * DERMATOPATHOLOGY (03/03/2024 12:00 AM CDT) Case Report Dermatopathology Report Case: [id number] Authorizing Provider: Deedee Wetzel PA Collected: 03/03/2024 12:00 AM Ordering Location: [facility] - Received: 03/04/2024 12:15 PM DermPath Lab Pathologist: Kenyatta Pillai MD Specimen: Skin, left lower abdomen 3:51 PM CDT DERMATOPATHOLOGY LABORATORY Final Diagnosis Specimen A. SKIN, left lower abdomen: SPONGIOTIC DERMATITIS WITH EOSINOPHILS (L30.8) (see microscopic description and comment) 3:51 PM CDT DERMATOPATHOLOGY LABORATORY Clinical History Dermatitis unspecified vs atopic dermatitis vs allergic contact dermatitis 3:51 PM CDT DERMATOPATHOLOGY LABORATORY Gross Description Specimen A: Received is one formalin filled container labeled with the patient's name and designated left lower abdomen. The specimen consists of a punch biopsy measuring 4x4x3 mm. Jar 0. 3:51 PM CDT DERMATOPATHOLOGY LABORATORY Microscopic Description Specimen A. SKIN, left lower abdomen: There is focal parakeratosis and spongiosis. In the dermis there is a mainly superficial perivascular lymphohistiocytic inflammatory infiltrate with numerous eosinophils. Additional deeper sections were obtained and reviewed. COMMENT: The histological differential diagnosis includes a contact dermatitis, an eczematous drug eruption, and less likely the urticarial phase of bullous pemphigoid. 3:51 PM CDT DERMATOPATHOLOGY LABORATORY Disclaimer An external and internal positive and negative controls are appropriate for the histochemical, immunohistochemical and immunofluorescence stain(s) in this case (if any), except where stated explicitly. The performance characteristics of the stain(s) cited in this report were developed and its performance characteristic determined by the Dermatopathology Laboratory at [facility], directed by Dr. Margie Morin. These tests need not be, and therefore are not, approved by the [place] Food and Drug Administration. The tests are used for clinical purposes. Billing Codes Specimen Charges Stain Charges 50146 1 3:51 PM CDT DERMATOPATHOLOGY LABORATORY Embedded Images 3:51 PM CDT DERMATOPATHOLOGY LABORATORY Pathology/Cytolog y TISSUE SPECIMEN FROM SKIN / Unknown 03/03/2024 03/04/2024 12:15 PM CDT [facility] - PATHOLOGY/CYT OLOGY ORDERABLES DERMATOPATHOLOGY LABORATORY [facility] - Department of Dermatology [address] [place] [address], [facility] [phone] documented in this encounter Visit Diagnoses Diagnosis Dermatitis, unspecified documented in this encounter
--- OUTSIDE RECORDS SUMMARY | 2024-09-05 08:29 | XMS_ITS | Clinical Summary ---
Author Organization [facility] Address [address] [place] [address] Care Team Providers Care Dj Instructor Name Role Phone Unavailable Primary Care Provider Unavailabl e Source Comments [facility],non-owned Affiliates and Associated Physician Practices is amultiple site organization consisting of ambulatory clinics and hospital sitesin [place], [place], [place] and [place]. This disclosure is being madepursuant to the Care Everywhere program and may not contain all information available regarding this patient. Last updated 18.[facility] Social History Tobacco Use Types Packs/Day Years Used Date Smoking Tobacco: Never Assessed Sex and Gender Information Value Date Recorded Sex Assigned at Not on file Gender Identity Not on file Sexual Orientation Not on file Plan of Treatment Health Maintenance Due Date Last Done Comments COLOGUARD (AGES 45-75) - COL ON CA SCREENING 1955 COLON MONITORING 1955 COLONOSCOPY - COLON CA SCREENING 1955 CT COLONOGRAPHY - COLON CA SCREENING 1955 Colorectal Cancer Screening 1955 FIT - COLON CA SCREENING 1955 FLEX SIG - COLON CA SCREENING 1955 LIPID TESTING 1955 HEPATITIS C SCREENING 12/19/1973 DTAP/TDAP/TD VACCINES (1 - Tdap) 12/23/1974 PNEUMOCOCCAL VACCINE 50+ (1 of 1 - PCV) 12/23/2005 ZOSTER VACCINE (1 of 2) 12/23/2005 COVID-19 VACCINE ( - 2023-2 5 season) 2024 INFLUENZA VACCINE (#1) 2024 DEPRESSION SCREENING 07/01/2024 MEDICARE AWV CALENDAR YEAR 2024 Respiratory Syncytial Virus (RSV) Vaccine Pt: or over 60 yrs (1 - 1-dose 75+ series) 12/23/2030 HEPATITIS B VACCINE Aged Out No longe r eligible based on patient's age to complete this topic HIB VACCINE Aged Out No longer eligi ble based on patient's age to complete this topic HPV VACCINE Aged Out No longer eligi ble based on patient's age to complete this topic MENINGOCOCCAL (Group B) VACCINE Aged Out No longer eligible based on patient's age to complete this topic MENINGOCOCCAL VACCINE Aged Out No rhys jyotsna eligible based on patient's age to complete this topic
--- OUTSIDE RECORDS SUMMARY | 2024-09-05 08:29 | XMS_ITS | Referral Summary ---
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, unspecified whether manager long term care insulin use; Primary osteoarthritis of right shoulder; Preoperative testing 09/02/2024 6:51 AM MUSHROOM SPAWN MAKER - 09/02/2024 11:59 PM MUSHROOM SPAWN MAKER Hospital Encounter [address] [address] Discharge Disposition: Discharge to home or self care 09/02/2024 8:23 AM MUSHROOM SPAWN MAKER - 09/02/2024 11:59 PM MUSHROOM SPAWN MAKER Hospital Encounter [facility] Radiology at [address] [address] Arthritis of right shoulder region Discharge Disposition: Discharge to home or self care 09/02/2024 9:00 AM MUSHROOM SPAWN MAKER Pre-Admission Testing [facility] CAM Pre Anesthesia Testing [address] [place] [phone] Pre-op evaluation (Primary Dx); 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, unspecified whether manager long term care insulin use 08/06/2024 Telephone [facility] Orthopaedic Surgery [address] [place] [address] [address]th [place] [address] [place] [address] Petey Casanova MD 07/22/2024 Telephone [facility] Orthopaedic Surgery [address] [facility] 1st Floor [address] [place] [address] Petey Casanova MD 07/22/2024 Orders Only [facility] Orthopaedic Surgery [address] [facility] 1st Floor [address] [place] [address] Petey Casanova MD Arthritis of right shoulder region (Primary Dx) 07/03/2024 9:10 AM MUSHROOM SPAWN MAKER Office Visit [facility] Orthopaedic Surgery [address] [facility] 1st Floor [address] [place] [address] Petey Casanova MD Primary osteoarthritis of left shoulder (Primary Dx); Arthritis of right shoulder region; Right shoulder pain, unspecified chronicity from Last 3 Months Allergies No known active allergies Medications amLODIPine-taz zepriL (LOTREL 5-20) 5-20 mg per capsuleIndicati ons:hypertensio n Take 1 capsule by mouth every morning 4 Active atorvastatin (LIPITOR) 20 mg tablet Take 1 tablet (20 mg total) by mouth nightly 4 Active metFORMIN XR (GLUCOPHAGE XR) 500 mg 24 hr tabletIndicatio ns:type 2 diabetes mellitus Take 1 tablet (500 mg total) by mouth every morning 4 Active metoprolol XL (TOPROL-XL) 50 mg extended release tabletIndicatio ns:hypertension Take 1 tablet (50 mg total) by mouth nightly 4 Active zolpidem (AMBIEN) 10 mg tablet Take 1 tablet (10 mg total) by mouth nightly as needed for sleep 4 Active ALPRAZolam (XANAX) 0.5 mg tablet Take 1 tablet (0.5 mg total) by mouth 3 (three) times a day as needed for anxiety Active CALCIUM-MAGNESI UM-ZINC ORALIndications :supplement Take 1 tablet by mouth every morning Active calcium carbonate (TUMS ORAL) Take 1 tablet/capsul e by mouth as needed (heartburn) Active famotidine (PEPCID) 20 mg tablet Take 1 tablet (20 mg total) by mouth daily as needed for heartburn Active acetaminophen (TYLENOL) 500 mg tablet Take 2 tablets (1,000 mg total) by mouth every 6 (six) hours 90 tablet 1 4 Active ascorbic acid (VITAMIN C ORAL)Indication s:supplement Take 1 tablet/capsul e by mouth every morning Active omega-3 fatty acids-fish oil 300-1,000 mg capsuleIndicati ons:supplement Take 2 capsules (2 g total) by mouth every morning Active lutein 20 mg capsuleIndicati ons:supplement Take 1 capsule (20 mg total) by mouth every morning Active MULTIVITAMIN ORALIndications :supplement Take 1 tablet/capsul e by mouth every morning Active ibuprofen (ADVIL,MOTRIN) 800 mg tablet Take 1 tablet (800 mg total) by mouth every 6 (six) hours as needed for pain Active Dupixent Pen pen injectorIndicat ions:Eczema Inject 2 mL (300 mg total) under the skin every 14 (fourteen) days 5 Active HYDROcodone-duong taminophen (NORCO) 5-325 mg per tabletIndicatio ns:Pain Take 1 tablet by mouth every 6 (six) hours as needed for pain Active tacrolimus (PROTOPIC) 0.1 % ointment Apply topically 2 (two) times a day 4 09/03/19 Discontinu ed(Therapy completed) ascorbic acid, vitamin C, (Vitamin C) powder Take by mouth 09/03/19 Discontinu ed(Therapy completed) Active Problems Problem Noted Date Diagnosed Date Primary osteoarthritis of right shoulder 025 Left shoulder pain 04/01/2024 Anxiety 03/26/2024 Hypertension 03/26/2024 At risk for obstructive sleep apnea 03/26/2024 Type 2 diabetes mellitus 03/26/2024 Hyperlipidemia 03/26/2024 Primary osteoarthritis of left shoulder 01/08/20 Social History Tobacco Use Types Packs/Day Years Used Date Smoking Tobacco: Former Cigarettes 1 9.5 0 1975 - 07/01/1985 Cigars Passive Smoke Exposure: Current Smokeless Tobacco: Never Tobacco Cessation:Counseling Given: Not Answered Comments:Smokes cigars 1 per month in summer months AUDIT-C Answer Date Recorded Q1: How often do you have a drink containing alc ohol? 2-4 times a month 09/02/2024 Q2: How many drinks containi ng alcohol do you have on a typical day when you are drinking? 5 or 6 09/02/2024 Q3: How often do you have si x or more drinks on one occasion? Weekly 09/02/2024 Personal Safety Answer Date Recorded Have you ever been in or are you currently in a harmful physical or emotional relationship or is someone making you feel afraid or unsafe? Denies 09/02/2024 Sex and Gender Information Value Date Recorded Sex Assigned at Not on file Legal Sex Male 7:19 AM MUSHROOM SPAWN MAKER Gender Identity Not on file Sexual Orientation Not on file Last Filed Vital Signs Vital Sign Reading Time Taken Comments Blood Pressure 148/88 09/02/2024 8:55 AM MUSHROOM SPAWN MAKER Pulse 58 09/02/2024 8:30 AM MUSHROOM SPAWN MAKER Temperature 36.1 C (97 F) 04/01/2024 2:55 PM CDT Respiratory Rate 18 09/02/2024 8:30 AM MUSHROOM SPAWN MAKER Oxygen Saturation 97% 09/02/2024 8:30 AM MUSHROOM SPAWN MAKER Inhaled Oxygen Concentration - - Weight 120.3 kg (265 lb 4.8 oz) 09/02/2024 8:30 AM MUSHROOM SPAWN MAKER Height 195.6 cm (6' 5 ) 09/02/2024 8:30 AM MUSHROOM SPAWN MAKER Body Mass Index 31.46 09/02/2024 8:30 AM MUSHROOM SPAWN MAKER Plan of Treatment Upcoming Encounters Date Type Department Care Team (Late st Contact Info) Description 09/16/2024 8:15 AM CDT Hospital Encounter [facility] Operating Room [address] [place] [address] Petey Casanova MD [address] [employer] [facility] 6A/6B/12A [place] [address] 09/16/2024 8:15 AM CDT Anesthesia Event [facility] Operating Room [address] [address] Debi Pena NP [id number] [place] [address] 09/16/2024 8:15 AM CDT - 09/16/2024 10:55 AM CDT Surgery [facility] Operating Room [address] [address] Petey Casanova MD [address] [facility] 6A/6B/12[address] [place] [address] RIGHT ANATOMIC TOTAL SHOULDER ARTHROPLASTY Scheduled Procedures Name Priority Associated Diagnoses Date/Ti me ARTHROPLASTY TOTAL SHOULDER Primary osteoarthritis of right shoulder 09/16/2024 8:15 AM CDT Medical Devices Implanted Type Area Executive Meeting Manager Device Identifier Shelf Expiration Date Model / Serial / Lot Bilateral Knees Bilateral: Knee Right Hip Replacement Right: Hip [employer] Simplex P Radiopaque Full Dose Cement Bone Sterile 6191-1-010 - [id number] Implanted:Qty: 1 on 04/01/2024 at [facility] Left: Shoulder [employer] 02/28/2026 [id number] / / [id number] [employer] Upholstery Sewer Perform Centered Modular Humeral Head Ti [id number] - [id number] Implanted:Qty: 1 on 04/01/2024 at [facility] Left: Shoulder [employer] 2028 [id number] / [id number] / [employer] Perform Cortiloc 40mm Peg Shoulder Large Component Glenoid [id number] - [id number] Implanted:Qty: 1 on 04/01/2024 at [facility] Left: Shoulder [employer] 05/15/2028 [id number] / [id number] / [employer] Stem Humeral Sz 3 Perform Shoulder Strl [id number] - [id number] Implanted:Qty: 1 on 04/01/2024 at [facility] Left: Shoulder [employer] 01/03/2029 [id number] / [id number] / [employer] Head Perform Cocr Modular Humeral [id number] - [id number] Implanted:Qty: 1 on 04/01/2024 at [facility] Left: Shoulder [employer] 01/10/2028 [id number] / [id number] / Procedures Procedure Name Priority Date/Time Associated Diagnosis Comments CT SHOULDER RIGHT WO CONTRAST Schedule Routine, Read Routine (OP Routine) 09/02/2024 9:36 AM MUSHROOM SPAWN MAKER Arthritis of right shoulder region EGFR Routine 09/02/2024 9:34 AM MUSHROOM SPAWN MAKER Primary osteoarthritis of right shoulder Preoperative testing COMPREHENSIVE METABOLIC PANEL Routine 09/02/2024 9:34 AM MUSHROOM SPAWN MAKER Primary osteoarthritis of right shoulder Preoperative testing HEMOGLOBIN A1C Routine 09/02/2024 9:34 AM MUSHROOM SPAWN MAKER Pre-op evaluation 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 Moderate to severe right shoulder glenohumeral and moderate acromioclavicular osteoarthritis, with adequate glenoid bone stock and early biconcave remodeling. 2. Osseous loose body within the subcoracoid recess with a small right shoulder joint effusion. Dictated by: Ricardo Vigil MD PHD The radiology attending physician has personally reviewed this study, and had reviewed and/or edited this written report and agrees with it. Electronically signed by: Margie Etienne MD Narrative 09/02/2024 4:39 PM MUSHROOM SPAWN MAKER EXAMINATION: CT SHOULDER RIGHT WO CONTRAST HISTORY: 68-year-old with right shoulder pain. TECHNIQUE: Transaxial computed tomographic images of the right shoulder were obtained without intravenous contrast according to the musculoskeletal Blueprint protocol. COMPARISON: Plain radiograph dated 08/08/2023. FINDINGS: No acute fracture or dislocation. There is moderate to severe glenohumeral and moderate acromioclavicular osteoarthritis, with subchondral cysts, joint space narrowing, and surrounding osteophytes. There is early biconcave remodeling. Glenoid bone stock measures 3.0 cm, which is adequate. No significant right glenohumeral effusion. There is an osseous loose body measuring 1.7 x 1.0 cm in the subcoracoid recess (series 2, image 118/371). Additional small areas of heterotopic ossification are noted in along the biceps tendon. Mild dependent right atelectasis with scattered apical blebs. Partially imaged severe multilevel degenerative disc disease of the cervical spine. No suspicious lung mass. No axillary lymphadenopathy. Procedure Note Sidra Etienne MD - 09/02/2024 EXAMINATION: CT SHOULDER RIGHT WO CONTRAST HISTORY: 68-year-old with right shoulder pain. TECHNIQUE: Transaxial computed tomographic images of the right shoulder were obtained without intravenous contrast according to the musculoskeletal Blueprint protocol. COMPARISON: Plain radiograph dated 08/08/2023. FINDINGS: No acute fracture or dislocation. There is moderate to severe glenohumeral and moderate acromioclavicular osteoarthritis, with subchondral cysts, joint space narrowing, and surrounding osteophytes. There is early biconcave remodeling. Glenoid bone stock measures 3.0 cm, which is adequate. No significant right glenohumeral effusion. There is an osseous loose body measuring 1.7 x 1.0 cm in the subcoracoid recess (series 2, image 118/371). Additional small areas of heterotopic ossification are noted in along the biceps tendon. Mild dependent right atelectasis with scattered apical blebs. Partially imaged severe multilevel degenerative disc disease of the cervical spine. No suspicious lung mass. No axillary lymphadenopathy. IMPRESSION: 1. Moderate to severe right shoulder glenohumeral and moderate acromioclavicular osteoarthritis, with adequate glenoid bone stock and early biconcave remodeling. 2. Osseous loose body within the subcoracoid recess with a small right shoulder joint effusion. Dictated by: Ricardo Vigil MD PHD The radiology attending physician has personally reviewed this study, and had reviewed and/or edited this written report and agrees with it. Electronically signed by: Margie Etienne MD Petey Casanova MD IMG CT PROCEDURES Fin al Result * eGFR (09/02/2024 9:34 AM MUSHROOM SPAWN MAKER) [facility] eGFR >90 >=60 mL/min/1. 73 m2 Comment: Interpretive Data Reference Interval Normal >/= 90 mL/min/1.73m2 Mildly decreased* 60 - 89 mL/min/1.73m2 Mildly to moderately decreased 45 - 59 mL/min/1.73m2 Moderately to severely decreased 30 - 44 mL/min/1.73m2 Severely decreased 15 - 29 mL/min/1.73m2 Kidney Failure < 15 mL/min/1.73m2 *Relative to young adult level Estimated glomerular filtration rate is determined by the 2020 CKD-EPI equation recommended by the National Kidney Foundation (A Unifying Approach to GFR Estimation: Recommendations of the NKF-ASK Task Force on Reassessing the Inclusion of Race in Diagnosing Kidney Disease, JASN 2020). The CKD-EPI equation should not be used for patients with unstable renal function and has not been validated in children and those over 70. Current interpretive data was last reviewed 2021. Blood 09/02/2024 9:34 AM MUSHROOM SPAWN MAKER 09/02/2024 11:47 AM MUSHROOM SPAWN MAKER us Petey Casanova MD LAB BLOOD ORDERABLES Final Result [facility] Department [place] [address] * CBC without differential (09/02/2024 9:34 AM MUSHROOM SPAWN MAKER) [facility] WBC 7.5 3.8 - 9.9 K/cumm Hgb 15.6 13.0 - 17.5 g/dL [facility] Hct 44.9 38.9 - 50.3 % [facility] Plt 202 150 - 400 K/cumm [facility] MPV 10.9 9.1 - 12.3 fL [facility] RBC 4.69 4.30 - 5.80 M/cumm [facility] MCV 95.7 81.3 - 96.4 fL [facility] MCH 33.3 27.1 - 33.3 pg [facility] MCHC 34.7 32.3 - 35.7 g/dL [facility] RDW CV 12.8 11.1 - 14.9 % [facility] RDW SD 44.9 35.7 - 48.1 fL [facility] NRBC abs 0.00 0.00 - 0.01 K/cumm [facility] Blood 09/02/2024 9:34 AM MUSHROOM SPAWN MAKER 09/02/2024 11:40 AM MUSHROOM SPAWN MAKER Debi Pena CRIME PREVENTION WORKER LAB BLOOD ORDERABLES Final R ult Performing Organization Address [facility] de Phone Number [facility] [employer] [place] [address] * (ABNORMAL) Hemoglobin A1c (09/02/2024 9:34 AM MUSHROOM SPAWN MAKER) Pathologist [facility] Hgb A1C 6.3(H) 4.0 - 5.6 % Estimated Average Glucose 134 mg/dL [facility] Comment: The ADA recommends reporting an estimated Average Glucose (eAG) with all Hemoglobin A1c results using the equation derived from a study of 507 normal and diabetic adults. Minority populations were underrepresented and children were not included. (Diabetes Care 2020; 43(S1): S66-S76). The eAG is not equivalent to a fasting glucose. Blood 09/02/2024 9:34 AM MUSHROOM SPAWN MAKER 09/02/2024 11:37 AM MUSHROOM SPAWN MAKER Debi Pnea CRIME PREVENTION WORKER LAB BLOOD ORDERABLES Final R esult Performing Organization Address City/[facility] Co de Phone Number [facility] [place] [address] * (ABNORMAL) Comprehensive metabolic panel (09/02/2024 9:34 AM MUSHROOM SPAWN MAKER) [facility] Sodium 141 135 - 145 mmol/L Potassium, pl 4.4 3.3 - 4.9 mmol/L [facility] Chloride 104 97 - 110 mmol/L [facility] CO2 28 22 - 32 mmol/L [facility] Anion gap 9 2 - 15 mmol/L [facility] BUN 20 6 - 25 mg/dL [facility] Creatinine 0.74(L) 0.80 - 1.30 mg/dL [facility] Glucose 122 70 - 199 mg/dL [facility] Comment: Interpretive Data Fasting glucose >/= 126 mg/dl is diagnostic for diabetes. Fasting is defined as no caloric intake for at least 8 hours. Fasting glucose between 100 mg/dl to 125 mg/dl is diagnostic of prediabetes. In a patient with classic symptoms of hyperglycemia or hyperglycemic crisis, a random glucose >/= 200 mg/dl is diagnostic for diabetes. In the absence of unequivocal hyperglycemia, results should be confirmed by repeat testing. The classification and Diagnosis of Diabetes Diabetes Care 202; 46: S19-S40. Current interpretive data was last revised 2022. Calcium 9.9 8.5 - 10.3 mg/dL [facility] Bilirubin, total 0.6 0.1 - 1.2 mg/dL [facility] Protein, pl 7.6 6.5 - 8.5 g/dL [facility] Albumin 4.7 3.5 - 5.0 g/dL [facility] Alk phos 56 40 - 130 Units/L [facility] ALT 45 7 - 55 Units/L [facility] AST 34 10 - 50 Units/L [facility] Blood 09/02/2024 9:34 AM MUSHROOM SPAWN MAKER 09/02/2024 11:36 AM MUSHROOM SPAWN MAKER Petey Casanova MD LAB BLOOD ORDERABLES Final Result Performing Organization Address City/State/[facility] Co de Phone Number [facility] Department [place] [address] from Last 3 Months Insurance [employer] MEDICARE GOLD AETNA MEDICARE GOLD Advance Directives For more information, please contact: [phone] Documents on File Type Date Recorded Patient Neonatal Social Worker Expl anation ADVANCE DIRECTIVE 04/02/2024 2:20 PM POWER OF EXECUTIVE MEETING MANAGER-MEDICAL Care Teams Laboratory Scientist Relationship Specialty Start Date End Date Unique Antony PA [facility] [place], [place] [id number] PCP - General Family Practice 03/10/24
--- OUTSIDE RECORDS SUMMARY | 2024-09-05 08:29 | XMS_ITS | Referral Summary ---
Author Organization [facility] Address [address] [place] [address] Care Team Providers Care Manufacturers Representative Name Role Phone Unavailable Primary Care Provider Unavailabl e Source Comments [facility],non-owned Affiliates and Associated Physician Practices is amultiple site organization consisting of ambulatory clinics and hospital sitesin [place], [place], [place] and [place]. This disclosure is being madepursuant to the Care Everywhere program and may not contain all information available regarding this patient. Last updated 18.[facility] Social History Tobacco Use Types Packs/Day Years Used Date Smoking Tobacco: Never Assessed Sex and Gender Information Value Date Recorded Sex Assigned at Not on file Gender Identity Not on file Sexual Orientation Not on file Plan of Treatment Not on file
--- OUTSIDE RECORDS SUMMARY | 2024-09-05 08:29 | XMS_ITS | Clinical Summary ---
Author Organization [facility] Address [facility] [place] [address] Care Team Providers Care Health Outcomes Liaison Name Role Phone Jose Luis Campbell MD Unavailable [phone] Anjel Armendariz MD Primary Care Provider [phone] Allergies No known active allergies Medications losartan 50 MG tablet Take 1 tablet (50 mg total) by mouth daily. Active hydrochlorothiaz robinson 12.5 MG tablet Take 1 tablet (12.5 mg total) by mouth every morning. Active ibuprofen 800 MG tablet Take 800 mg by mouth every 8 (eight) hours as needed. Active ALPRAZolam 0.25 MG tablet 12/13/2018 Active Active Problems No known active problems Family History Medical History Relation Comments Heart Disease Father Hypertension Father Colon Cancer Mother Other Sister tumor removed fr om Kidney Relation Status Comments Father Mother Sister Social History Tobacco Use Types Packs/Day Years Used Date Smoking Tobacco: Former Cigarettes Q uit: 06/30/2017 Smokeless Tobacco: Never Alcohol Use Standard Drinks/Week Comments Yes 0 (1 standard drink = 0.6 oz pur e alcohol) socially Sex and Gender Information Value Date Recorded Sex Assigned at Not on file Legal Sex Male 9:42 PM CDT Gender Identity Not on file Sexual Orientation Not on file Last Filed Vital Signs Vital Sign Reading Time Taken Comments Blood Pressure 120/72 12/03/2022 9:52 AM CDT Pulse 58 12/03/2022 9:52 AM CDT Temperature 36.3 C (97.4 F) 12/03/2022 9:52 AM CDT Respiratory Rate 16 12/03/2022 9:52 AM CDT Oxygen Saturation 94% 12/03/2022 9:52 AM CDT Inhaled Oxygen Concentration - - Weight 113.4 kg (250 lb) 12/03/2022 7:57 AM CDT Height 195.6 cm (6' 5 ) 12/03/2022 7:57 AM CDT Body Mass Index 29.65 12/03/2022 7:57 AM CDT Plan of Treatment Health Maintenance Due Date Last Done Comments Hepatitis C 12/23/1973 DTaP, Tdap and Td Vaccines ( 1 - Tdap) 12/23/1974 Zoster Vaccines (1 of 2) 12/23/2005 Annual Medicare Wellness Visit 12/23/2020 Pneumococcal Vaccine: 65+ Ye ars (1 of 1 - PCV) 12/23/2020 COVID-19 Vaccine ( - 2023-2 5 season) 2024 Influenza Adult (#1) 2024 Colorectal Cancer Screening Colonoscopy (10 Years) 12/17/2028 12/17/2018 RSV Immunization or 60+ Years (1 - 1-dose 75+ series) 12/23/2030 Meningococcal B Vaccine Aged Out No l onger eligible based on patient's age to complete this topic Meningococcal Vaccine Aged Out No rhys jyotsna eligible based on patient's age to complete this topic RSV Immunizations Under 20 Months Aged Out No longer eligible based on patient's age to complete this topic Procedures Procedure Name Priority Date/Time Associated Diagnosis Comments COLONOSCOPY GENERIC (SCAN ORDER) Routine 12/17/2018 from Last 3 Months or Most Recently Relevant to Health Maintenance Results * COLONOSCOPY (12/17/2018) us Documents Scanned SCANNING Final Result from Last 3 Months or Most Recently Relevant to Health Maintenance Insurance [employer] Care Teams Health Outcomes Liaison Relationship Specialty Start Date End Date Anjel Armendariz MD [address] [place] [id number] PCP - General FAMILY PRACTICE 12/03/22 Jose Luis Campbell MD [address] [place] [id number] INTERNAL MEDICINE 10/27/18
--- OUTSIDE RECORDS SUMMARY | 2024-09-05 08:29 | XMS_ITS | Clinical Summary ---
Author Organization [facility] Address [address] [place] [id number] Care Team Providers Care Efficiency Engineer Name Role Phone Unique Antony Primary Care Provider [phone] Allergies No known active allergies Medications amLODIPine-taz [...] 2 (two) times a day 4 09/03/19 25 Discontinu ed(Therapy completed) ascorbic acid, vitamin C, (Vitamin C) powder Take by mouth 09/03/19 Discontinu ed(Therapy completed) Active Problems Problem Noted Date Diagnosed Date Primary osteoarthritis of right shoulder 025 Left shoulder pain 04/01/2024 Anxiety 03/26/2024 Hypertension 03/26/2024 At risk for obstructive sleep apnea 03/26/2024 Type 2 diabetes mellitus 03/26/2024 Hyperlipidemia 03/26/2024 Primary osteoarthritis of left shoulder 01/08/20 24 Encounters Date Type Department Care Team Description 09/02/2024 9:00 AM PRIVATE DUTY LPN Pre-Admission Testing [facility] CAM Pre Anesthesia Testing [address] [place] [address] Pre-op evaluation (Primary Dx); 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, unspecified whether exterminator insulin use 09/02/2024 8:25 AM PRIVATE DUTY LPN Lab [facility] [address] [place] [address] Pre-op evaluation; 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, unspecified whether exterminator insulin use; Primary osteoarthritis of right shoulder; Preoperative testing 09/02/2024 8:23 AM PRIVATE DUTY LPN - 09/02/2024 11:59 PM PRIVATE DUTY LPN Hospital Encounter [facility]iology at [facility] [address] [place] [address] Arthritis of right shoulder region Discharge Disposition: Discharge to home or self care 09/02/2024 6:51 AM PRIVATE DUTY LPN - 09/02/2024 11:59 PM PRIVATE DUTY LPN Hospital Encounter [facility] [address] [place] [address] Discharge Disposition: Discharge to home or self care 08/06/[address] [facility] Orthopaedic Surgery [address] [place] [address] [address]th [place] [address] [place] [address] Petey Casanova MD 07/22/[address] [facility] Orthopaedic Surgery [address] [place] [address] 1st [address] [place] [address] Petey Casanova MD 07/22/[address] [facility] Orthopaedic Surgery [address] [place] [address] 1st [address] [place] [address] Petey Casanova MD Arthritis of right shoulder region (Primary Dx) 07/03/2024 9:10 AM PRIVATE DUTY LPN Office Visit [facility] Orthopaedic Surgery [address] [place] [address] 1st [address] [place] [address] Petey Casanova MD Primary osteoarthritis of left shoulder (Primary Dx); Arthritis of right shoulder region; Right shoulder pain, unspecified chronicity from Last 3 Months Surgical History Surgery Date Site/Laterality Comments JOINT REPLACEMENT 2003,2009,2022 FLUORO GUIDED ASPIRATION OR INJECTION LARGE JOINT BILATERAL 08/15/2023 Bilateral SHOULDER ARTHROPLASTY 03/31/2024 - 04/30/2024 Left Medical History Medical History Date Comments Arthritis 1980 Hypertension 1985 Family History Medical History Relation Name Comments Arthritis Father Eagle [place] Hypertension Father Eagle [place] Cancer Mother Marley [place] Anesthesia problems Neg Hx Relation Name Status Comments Father Eagle [place] Mother Marley [place] Social History Tobacco Use Types Packs/Day Years [...] on file Legal Sex Male 7:19 AM PRIVATE DUTY LPN Gender Identity Not on file Sexual Orientation Not on file Obstetrics History Last Filed Vital Signs Vital Sign Reading Time Taken Comments Blood Pressure 148/88 09/02/2024 8:55 AM PRIVATE DUTY LPN Pulse 58 09/02/2024 8:30 AM PRIVATE DUTY LPN Temperature 36.1 C (97 F) 04/01/2024 2:55 PM CDT Respiratory Rate 18 09/02/2024 8:30 AM PRIVATE DUTY LPN Oxygen Saturation 97% 09/02/2024 8:30 AM PRIVATE DUTY LPN Inhaled Oxygen Concentration - - Weight 120.3 kg (265 lb 4.8 oz) 09/02/2024 8:30 AM PRIVATE DUTY LPN Height 195.6 cm (6' 5 ) 09/02/2024 8:30 AM PRIVATE DUTY LPN Body Mass Index 31.46 09/02/2024 8:30 AM PRIVATE DUTY LPN Plan of Treatment Upcoming Encounters Date Type Department Care Team (Late st Contact Info) Description 09/16/2024 8:15 AM CDT Hospital Encounter [facility] Operating Room [address] [address] Petey Casanova MD [address] [facility] 6A/6B[address] [place] [address] 09/16/2024 8:15 AM CDT Anesthesia Event [facility] Operating Room [address] [address] Debi Pena NP [id number] [place] [address] 09/16/2024 8:15 AM CDT - 09/16/2024 10:55 AM CDT Surgery [facility] Operating Room [address] [address] Petey Casanova MD [address] [place] [address] RIGHT ANATOMIC TOTAL SHOULDER ARTHROPLASTY Scheduled Procedures Name Priority Associated Diagnoses Date/Ti me ARTHROPLASTY TOTAL SHOULDER Primary osteoarthritis of right shoulder 09/16/2024 8:15 AM CDT Health Maintenance Due Date Last Done Comments Albumin Creatinine Ratio, Urine 1955 Colon Cancer Screening-Colonoscopy 1955 Depression Screening 1955 Hepatitis C Screening 1955 Prostate Cancer Screening-PSA 1955 Dilated Eye Exam 1955 Foot Exam 1955 Lipid Panel 1955 DTaP/Tdap/Td Vaccine (1 - Tdap) 12/23/1966 Hepatitis B Screening 12/23/1973 Well Visit 65+ 12/23/2020 Covid-19 Vaccine (6 - 2023-2 5 season) 2024 04/29/2023, 03/06/2022, 04/28/2021, Additional history exists Influenza Vaccine (#1) 2024 , 03/06/2022, 03/31/2021, Additional history exists Hemoglobin A1C 03/05/2025 09/02/2024, 03/18/2024 Fall Risk Assessment 09/02/2025 09/02/2024 eGFR 09/02/2025 09/02/2024, 03/18/2024 Zoster Vaccine Completed 06/02/2018, 02/20/2018 Abdominal Aortic Aneurysm (A AA) Screen Completed 12/03/2022 Pneumococcal vaccine 65+ Completed 03/13/2023 Medical Devices Implanted Type Area Regional Driver Device Identifier Shelf Expiration Date Model / Serial / Lot Bilateral Knees Bilateral: Knee Right Hip Replacement Right: Hip [employer] Simplex P Radiopaque Full Dose Cement Bone Sterile 6191-1-010 - [id number] Implanted:Qty: 1 on 04/01/2024 at [facility] Left: Shoulder [employer] 02/28/2026 6191-1-01 0 / / [id number] [employer] Library Science Instructor Perform Centered Modular Humeral Head Ti [id number] - [id number] Implanted:Qty: 1 on 04/01/2024 at [facility] Left: Shoulder [employer] 2028 [id number] / [id number] / [employer] Perform Cortiloc 40mm Peg Shoulder Large Component Glenoid [id number] - [id number] Implanted:Qty: 1 on 04/01/2024 at [facility] Left: Shoulder [employer] 05/15/2028 [id number] / [id number] / [employer] Stem Humeral Sz 3 Perform Shoulder Strl [id number] - [id number] Implanted:Qty: 1 on 04/01/2024 at [facility] Left: Shoulder [employer] 01/03/2029 [id number] / [id number] / [employer] Head Perform Cocr Modular Humeral [id number] - [id number] Implanted:Qty: 1 on 04/01/2024 at [facility] Left: Shoulder [employer] 01/10/2028 [id number] / [id number] / Procedures Procedure Name Priority Date/Time Associated Diagnosis Comments CT SHOULDER RIGHT WO CONTRAST Schedule Routine, Read Routine (OP Routine) 09/02/2024 9:36 AM PRIVATE DUTY LPN Arthritis of right shoulder region EGFR Routine 09/02/2024 9:34 AM PRIVATE DUTY LPN Primary osteoarthritis of right shoulder Preoperative testing COMPREHENSIVE METABOLIC PANEL Routine 09/02/2024 9:34 AM PRIVATE DUTY LPN Primary osteoarthritis of right shoulder Preoperative testing HEMOGLOBIN A1C Routine 09/02/2024 9:34 AM PRIVATE DUTY LPN Pre-op evaluation 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 Moderate to severe right shoulder glenohumeral [...] Margie Etienne MD Narrative 09/02/2024 4:39 PM PRIVATE DUTY LPN EXAMINATION: CT SHOULDER RIGHT WO CONTRAST HISTORY: [...] it. Electronically signed by: Margie Etienne MD us Petey Casanova MD IMG CT PROCEDURES Fin al Result * eGFR (09/02/2024 9:34 AM PRIVATE DUTY LPN) eGFR >90 >=60 mL/min/1. 73 m2 Comment: [...] last reviewed 2021. Blood 09/02/2024 9:34 AM PRIVATE DUTY LPN 09/02/2024 11:47 AM PRIVATE DUTY LPN us Petey Casanova MD LAB BLOOD ORDERABLES Final Result [facility] [place] [address] * CBC without differential (09/02/2024 9:34 AM PRIVATE DUTY LPN) WBC 7.5 3.8 - 9.9 K/cumm Hgb 15.6 13.0 - 17.5 g/dL [facility] Hct 44.9 38.9 - 50.3 % [facility] Plt 202 150 - 400 K/cumm [facility] MPV 10.9 9.1 - 12.3 fL [facility] RBC 4.69 4.30 - 5.80 M/cumm [facility] MCV 95.7 81.3 - 96.4 fL [facility] MCH 33.3 27.1 - 33.3 pg [facility] MCHC 34.7 32.3 - 35.7 g/dL [facility] RDW CV 12.8 11.1 - 14.9 % [facility] RDW SD 44.9 35.7 - 48.1 fL [facility] NRBC abs 0.00 0.00 - 0.01 K/cumm [facility] Blood 09/02/2024 9:34 AM PRIVATE DUTY LPN 09/02/2024 11:40 AM PRIVATE DUTY LPN Debi Pena DIGITAL DEVELOPER LAB BLOOD ORDERABLES Final R esult Performing Organization Address [facility] Co de Phone Number LOKESH [facility] [place] [employer] [place] [address] * (ABNORMAL) Hemoglobin A1c (09/02/2024 9:34 AM PRIVATE DUTY LPN) Hgb A1C 6.3(H) 4.0 - 5.6 % Estimated Average Glucose 134 mg/dL [facility] Comment: The ADA recommends reporting an estimated Average Glucose (eAG) with all Hemoglobin A1c results using the equation derived from a study of 507 normal and diabetic adults. Minority populations were underrepresented and children were not included. (Diabetes Care 2020; 43(S1): S66-S76). The eAG is not equivalent to a fasting glucose. Blood 09/02/2024 9:34 AM PRIVATE DUTY LPN 09/02/2024 11:37 AM PRIVATE DUTY LPN Debi Pena DIGITAL DEVELOPER LAB BLOOD ORDERABLES Final R esult Performing Organization Address [facility] Co de Phone Number LOKESH [facility] [place] [place] [address] * (ABNORMAL) Comprehensive metabolic panel (09/02/2024 9:34 AM PRIVATE DUTY LPN) Pathologist [facility] Sodium 141 135 - 145 mmol/L Potassium, pl 4.4 3.3 - 4.9 mmol/L [facility] Chloride 104 97 - 110 mmol/L [facility] CO2 28 22 - 32 mmol/L [facility] Anion gap 9 2 - 15 mmol/L [facility] BUN 20 6 - 25 mg/dL [facility] Creatinine 0.74(L) 0.80 - 1.30 mg/dL [facility] Glucose 122 70 - 199 mg/dL [facility] Comment: Interpretive Data Fasting glucose [...] 2022. Calcium 9.9 8.5 - 10.3 mg/dL [facility] Bilirubin, total 0.6 0.1 - 1.2 mg/dL [facility] Protein, pl 7.6 6.5 - 8.5 g/dL [facility] Albumin 4.7 3.5 - 5.0 g/dL [facility] Alk phos 56 40 - 130 Units/L [facility] ALT 45 7 - 55 Units/L [facility] AST 34 10 - 50 Units/L [facility] Blood 09/02/2024 9:34 AM PRIVATE DUTY LPN 09/02/2024 11:36 AM PRIVATE DUTY LPN Petey Casanova MD LAB BLOOD ORDERABLES Final Result [facility] [place] [address] from Last 3 Months Insurance [employer] MEDICARE GOLD AET[employer] MEDICARE GOLD Advance Directives For more information, please contact: [phone] Documents on File Type Date Recorded Patient Digital Developer Expl anation ADVANCE DIRECTIVE 04/02/2024 2:20 PM [employer] Care Teams Efficiency Engineer Relationship Specialty Start Date End Date Unique Antony PA [address] [place] [id number] PCP - General Family Practice 03/10/24
--- OUTSIDE RECORDS SUMMARY | 2024-09-05 08:29 | XMS_ITS | Patient Health Summary ---
Author Organization [facility] Address [address] [place] [address] Care Team Providers Care Weight Loss Consultant Name Role Phone Unavailable Primary Care Provider Unavailabl e Note from [facility],non-owned Affiliates and Associated Physician Practices is amultiple site organization consisting of ambulatory clinics and hospital sitesin [place], [place], [place] and [place]. This disclosure is being madepursuant to the Care Everywhere program and may not contain all information available regarding this patient. Last updated 18.[facility] Social History Tobacco Use Types Packs/Day Years Used Date Smoking Tobacco: Never Assessed Sex and Gender Information Value Date Recorded Sex Assigned at Not on file Gender Identity Not on file Sexual Orientation Not on file Procedures * DERMATOPATHOLOGY(Performed 03/03/2024) Performed for Dermatitis, unspecified Results * DERMATOPATHOLOGY (03/03/2024 12:00 AM CDT) Case Report Dermatopathology Report Case: [id number] Authorizing Provider: Deedee Wetzel PA Collected: 03/03/2024 12:00 AM Ordering Location: [facility] - Received: 03/04/2024 12:15 PM DermPath Lab [...] punch biopsy measuring 4x4x3 mm. Jar 0. 4 3:51 PM CDT DERMATOPATHOLOGY LABORATORY Microscopic Description Specimen A. SKIN, left lower abdomen: There is focal parakeratosis and spongiosis. In the dermis there is a mainly superficial perivascular lymphohistiocytic inflammatory infiltrate with numerous eosinophils. Additional deeper sections were obtained and reviewed. COMMENT: The histological differential diagnosis includes a contact dermatitis, an eczematous drug eruption, and less likely the urticarial phase of bullous pemphigoid. 4 3:51 PM CDT DERMATOPATHOLOGY LABORATORY Disclaimer An external and internal positive and negative controls are appropriate for the histochemical, immunohistochemical and immunofluorescence stain(s) in this case (if any), except where stated explicitly. The performance characteristics of the stain(s) cited in this report were developed and its performance characteristic determined by the Dermatopathology Laboratory at [facility], directed by Dr. Margie Morin. These tests need not be, and therefore are not, approved by the [place] Food and Drug Administration. The tests are used for clinical purposes. Billing Codes Specimen Charges Stain Charges 88882 1 4 3:51 PM CDT DERMATOPATHOLOGY LABORATORY Embedded Images 4 3:51 PM CDT DERMATOPATHOLOGY LABORATORY Pathology/Cytolog y TISSUE SPECIMEN FROM SKIN / Unknown 03/03/2024 03/04/2024 12:15 PM CDT [facility] - PATHOLOGY/CYT OLOGY ORDERABLES DERMATOPATHOLOGY LABORATORY [facility] - Department of Dermatology [address] [phone]
[2024-09-05 08:44] VITALS: BP 167/72; PULSE 16; RESP 16; TEMP 36.3; O2SAT 98
[2024-09-05 09:01] LABS: EDCOVIDSCREEN Negative (Negative); EDINFLUASCREEN Negative (Negative); EDINFLUBSCREEN Negative (Negative); EDSTREPNEGPOS1 Negative (Negative)
--- NOTE | 2024-09-05 09:09 | ED_ITS ---
HPI - URI/Sore Throat General Chief Complaint: Upper Respiratory Infection Stated Complaint: COLD LIKE Source: patient Mode of arrival: ambulatory Limitations: no limitations History of Present Illness HPI Narrative: 68-year-old male presents to [facility] with complaints of nasal congestion, runny nose, productive cough and sore throat for the past 2 days. Patient reports that he feels that his symptoms worsened at 2:00 a.m. today. Patient reports that he has been taking dwru-new-ecswwta Mucinex and drinking warm fluids with little relief. Patient reports his grand children recently had similar symptoms. Patient is a nonsmoker. Patient denies recent travel. Patient denies shortness of breath, wheezing, fevers, nausea vomiting or diarrhea. MD elicited complaint: cough, sore throat, rhinorrhea and nasal congestion Onset (ago): day(s) (2) Able to tolerate fluids by mouth: Yes Context: sick contacts Treatments prior to arrival: cold medicine Related Data Home Medications ?Medication ?Instructions ?Recorded ?Confirmed ?Last Taken ?Type ascorbic acid (vitamin C) 500 mg 500 mg PO DAILY 07/10/21 06/25/24 07/09/21 History tablet (Vitamin C) multivitamin 1 cap PO DAILY 07/10/21 06/25/24 07/09/21 History zinc 50 mg capsule 50 mg PO DAILY 07/10/21 06/25/24 07/09/21 History lutein 40 mg capsule 40 mg PO DAILY 03/21/23 06/25/24 Unknown History omega 2-agn-lus-fish oil 1,200 mg 1 cap PO DAILY 03/21/23 06/25/24 Unknown History (144 mg-216 mg) capsule (Fish Oil) Allergies Allergy/AdvReac Type Severity Reaction Status Date / Time doxycycline AdvReac Intermediate Gastrointestinal Verified 09/05/24 08:45 Upset Review of Systems Constitutional: Constitutional: Denies chills, Denies fatigue, Denies fever(s) and Denies weakness ENT: Denies dysphagia, Denies vertigo, Denies dizziness, Denies epistaxis, Reports nasal congestion and Reports sore throat Respiratory: Respiratory: Reports cough, Denies dyspnea and Denies wheezing Gastrointestinal: Gastrointestinal: Denies diarrhea, Denies nausea and Denies vomiting Integumentary/Breasts: Skin/Breast: Denies pruritus, Denies erythema and Denies rash Neurologic: Denies syncope and Denies headache(s) PMFSH Past Medical History Medical History Eczema Hyperglycemia Insomnia Anxiety Osteoarthritis of right hip Right hip pain Idiopathic peripheral neuropathy Trigger middle finger of left hand Tarsal tunnel syndrome of right side Tarsal tunnel syndrome of left side Pain in right foot (12/20/17) Pain in left foot Mallet toe of right foot Mallet toe of left foot Bilateral shoulder region arthritis Arthritis of hand, degenerative Acquired trigger finger of left little finger Hammertoe of second toe of right foot Hypertension High cholesterol Surgical History Surgical History History of left shoulder replacement 03/2024 S/P total right hip arthroplasty RT BRAD 04/02/23 History of hammer toe correction H/O colonoscopy 2019 Dr. Hare repeat 3 years History of foot surgery tarsal tunnel bilateral - 2018 History of carpal tunnel release 2011 History of knee replacement, total Bilateral 2003, 2012 Family History Family History Father Heart disease Mother No problems noted. Other Family history of malignant neoplasm Hypertension Social History Social History Social History: 06/22/24 Patient declined SDOH Smoking packs per day: 1 Smoking cigarettes per day: 20.0 Years smoked: 10 Smoking pack-years: 10.00 Smoking status: Former smoker Tobacco type: cigarettes Second hand tobacco smoke exposure: No Smoking end date: 07/01/07 Additional smoking assessment comments: PT DENIES ALL FORMS OF TOBACCO USE Alcohol intake: current Drinks per week: 12 Alcohol use details: 12/WEEK DURING [employer] SEASON - RARELY WINTER MONTHS Substance use: never Substance use type: does not use Lack of Transportation: No Lack of Food: Never True Current Housing: I Have Housing Concerned About Future Housing: No Difficulty Paying Gas/Electric Bills: No Difficulty Paying for Meds: No Currently Unemployed: No Education: Bachelor's Degree Difficulty w/ Childcare or Family Care: No Living arrangements: with family Occupation/Education: occupation Gender identity (if verbalized by the patient): Male Sexual Orientation (if Verbalized by the Patient): Straight or Heterosexual Spiritual care concerns: No Comments At time of signature, I agree with nursing past medical, surgical, social and family history. There is no relevant family history pertinent to the presenting complaint. Exam Const: General: healthy appearing and no acute distress Nutritional Appearance: well nourished Orientation/consciousness: patient oriented x3 Limitations: no limitations HENMT: Head: normal to inspection Ears: external ears normal, TM's normal bilaterally and EAC's normal Face/Nose/Sinus: Normal external nose present and Normal nares present Face and sinus: sinuses nontender Mouth: Yes lip normal and Yes moist mucous membranes Throat: posterior oropharynx normal and uvula midline Eyes: Conjunctivae: conjunctivae normal Pupils: Equal, round and reactive pupils present Neck: Neck: normal visual inspection and no lymphadenopathy Resp: Effort & Inspection: normal respiratory effort and not labored Auscultation: clear to auscultation bilaterally, no crackles, no rales, no rhonchi and no wheezes Cardio: Rate: regular rate Rhythm: regular rhythm Heart sounds: no murmurs Skin: General skin exam: normal color Rashes: no rashes Neuro: General: patient oriented x3 and moves all extremities Speech: normal speech Gait exam (Neuro): Normal gait present Extrem: General: normal to inspection Psych: Affect: normal affect Attitude: cooperative Course Course Level of Care: Express Care Visit Vital Signs Vital signs: Vital Signs Temperature 36.3 C L 09/05/24 08:44 Pulse Rate 16 L 09/05/24 08:44 Respiratory Rate 16 09/05/24 08:44 Blood Pressure 167/72 H 09/05/24 08:44 Pulse Oximetry 98 09/05/24 08:44 Oxygen Delivery Room Air 09/05/24 08:44 Temperature 36.3 C L 09/05/24 08:44 Pulse Rate 16 L 09/05/24 08:44 Respiratory Rate 16 09/05/24 08:44 Blood Pressure 167/72 H 09/05/24 08:44 Pulse Oximetry 98 09/05/24 08:44 Oxygen Delivery Room Air 09/05/24 08:44 MDM - URI/Sore Throat MDM Narrative Medical decision making narrative: Discussed negative lab results with patient. Patient understands that symptoms are likely viral at this time. Instructed patient to take Claritin daily and benzonatate as needed for cough. Instructed patient follow-up with primary care provider in 48-72 hours if symptoms not improved. Instructed patient to proceed to the emergency room if symptoms worsen Differential Diagnosis Differential diagnosis: Likely sinusitis, bronchitis and pharyngitis Lab Data Labs: Lab Results 09/05/24 Range/Units 08:59 POC Influenza A Ag Negative (Negative) POC Influenza B Ag Negative (Negative) POC SARS CoV-2 Ag Negative (Negative) POC Grp A Strep Screen Negative (Negative) Critical Care Time Critical Care Time Critical Care Time: No Discharge Plan Discharge Clinical Impression: Viral infection Patient Disposition: Home, Self-Care Condition: Stable Instructions: HIV Infection (ED) Additional Instructions: Rest Increase fluids take Claritin daily Take Tessalon as needed for cough Follow-up with primary care provider in 24-48 hours if symptoms not improved Proceed to the emergency room if symptoms worsen Patient Language: Hebrew Prescriptions: New loratadine [Claritin] 10 mg tablet 10 mg PO DAILY Qty: 30 0RF benzonatate 100 mg capsule 100 mg PO BID PRN (Reason: cough) Qty: 20 0RF No Action cefdinir 300 mg capsule 300 mg PO Q12H Qty: 20 0RF ascorbic acid (vitamin C) [Vitamin C] 500 mg Tablet 500 mg PO DAILY multivitamin Capsule 1 cap PO DAILY zinc 50 mg Capsule 50 mg PO DAILY omega 5-ovj-lxx-fish oil [Fish Oil] 1,200 (144-216) mg Capsule 1 cap PO DAILY lutein 40 mg Capsule 40 mg PO DAILY Rx Instructions: administer with meals prednisone 20 mg tablet 20 mg PO DAILY Qty: 5 0RF Rx Instructions: take 1 tab every AM with food for 5 days ibuprofen 800 mg tablet 800 mg PO TID PRN (Reason: pain) Qty: 90 0RF metoprolol succinate 50 mg tablet extended release 24 hr 50 mg PO QHS Qty: 90 0RF azithromycin 250 mg tablet See Rx Instructions PO .COMPLEX Qty: 6 0RF Rx Instructions: For 250 mg dose pack: take 500 mg today (day 1), then 250 mg for 4 days (days 2-5) PO amlodipine-benazepril 5-20 mg capsule 1 cap PO DAILY Qty: 90 0RF zolpidem 10 mg tablet 10 mg PO QHS PRN (Reason: insomnia) Qty: 30 2RF metformin 500 mg tablet extended release 24 hr 500 mg PO DAILY Qty: 90 0RF atorvastatin 20 mg tablet 20 mg PO QHS Qty: 90 0RF hydrocodone-acetaminophen 5-325 mg tablet 1 tablet PO Q4H PRN (Reason: Pain) Qty: 30 0RF alprazolam 0.5 mg tablet 0.5 mg PO BID PRN (Reason: anxiety) Qty: 180 0RF Follow-up/Referrals: Unique Antony PA-C [Primary Care Provider] - Time of Disposition: 09:14
== END 2024-09-05 09:15 | disposition home or self-care (01) ==
PROVIDERS: Emergency Provider Nurse Practitioner Family; PCP Physician Assistant Medical
DX: B34.9 Viral infection, unspecified (principal); Z20.822 Contact with and (suspected) exposure to COVID-19; Z87.891 Personal history of nicotine dependence; I10 Essential (primary) hypertension; E78.00 Pure hypercholesterolemia, unspecified; M19.012 Primary osteoarthritis, left shoulder; M19.011 Primary osteoarthritis, right shoulder; G60.9 Hereditary and idiopathic neuropathy, unspecified; M16.11 Unilateral primary osteoarthritis, right hip; Z96.612 Presence of left artificial shoulder joint; Z96.641 Presence of right artificial hip joint; Z96.653 Presence of artificial knee joint, bilateral
CPT/HCPCS: 87081; 87426; 87804; 87880; 99213; G0463